=== PATIENT | female | born 1985 | race Caucasian/White ===

== ENCOUNTER → 2017-06-02 | Outpatient (CLI) | payer OTHER ==
[~2017-06-02] MED LIST: OPTIRAY 320 IV PRN
--- NOTE | 2017-06-02 17:21 | DIAGNOSTIC IMAGING REPORT ---
CT ANGIOGRAM OF THE CHEST CLINICAL HISTORY: Atypical chest pain and shortness of breath COMPARISON STUDY: No previous studies for comparison. TECHNIQUE: Following the IV administration of 93 mL of Optiray-320, CT angiogram of the thorax was performed from the thoracic inlet to the lung bases utilizing the pulmonary embolus protocol. Images are reviewed in the axial, sagittal, and coronal planes. IV contrast was administered without complication. MIP imaging was performed. A dose lowering technique was utilized adhering to the principles of ALARA. CT DOSE: 607.68 mGy.cm FINDINGS: No pathologically enlarged axillary mediastinal or hilar lymph nodes were visualized. There is no evidence of thoracic aortic dilatation. There is a left aortic arch with an aberrant right subclavian artery. There were no pulmonary artery filling defects to indicate acute pulmonary embolism. No pleural effusions are visualized. There was no evidence of focal pulmonary consolidation. IMPRESSION: 1. No evidence of acute pulmonary embolism 2. No evidence of focal pulmonary consolidation 3. Left aortic arch with an aberrant right subclavian artery Electronically signed by: Brandon Fernandez M.D. 06/02/2017 5:19 PM Dictated Date/Time: 06/02/2017 5:17 PM
== END | disposition home or self-care (01) ==
LOC: C.CTS 16:10
PROVIDERS: ATTEND Physician Assistant Medical
DX: R06.02 Shortness of breath (principal); R07.9 Chest pain, unspecified

== ENCOUNTER 2017-09-07 14:56 | Emergency (ER) | payer OTHER ==
[~2017-09-07] VITALS: Ht 167.6 cm; Wt 98.5 kg
[2017-09-07 15:05] VITALS: BP 143/96; PULSE 68; TEMP 37.1; O2SAT 97; Ht 167.6 cm; Wt 98.5 kg
--- NOTE | 2017-09-07 15:39 | EMERGENCY ROOM VISIT NOTE ---
ED Visit Note First contact with patient: 15:09 CHIEF COMPLAINT: Bilateral ear pain HISTORY OF PRESENT ILLNESS: This 31-year-old female presents the ER with chief complaint of bilateral ear pain. The patient states that she was seen at her family doctor yesterday for right ear pain. She was prescribed Augmentin twice daily for 10 days and also placed on Cortisporin Otic eardrops. The patient is here today because she is concerned that she now has it in her left ear. She started with pain in her left ear last evening. The patient denies any hearing loss. REVIEW OF SYSTEMS: 10 system review was performed and was negative unless stated otherwise history of present illness. PMH: The patient is healthy; asthma, dermatitis Ylzru-Miudokclg-Lapas, gallbladder problems SOCIAL HISTORY: Patient lives with her grandmother. The patient denies any tobacco use but admits to occasional alcohol use. PHYSICAL EXAM: Vital Signs: Were reviewed Reviewed Nurse's notes. GENERAL: 31- year-old white female appears in no acute distress. MENTAL Status: Alert and oriented 3. EARS: Right tragus and auricle tender to palpation. Canal with erythema and edema. Drainage noted. TM with good light reflex. Left tragus and auricle tender to palpation. Canal with edema and mild erythema. TM with good light reflex. MASTOIDS: No erythema or edema noted. The patient is nontender to palpation over the mastoid process. DIAGNOSIS: Acute bilateral otitis externa DISCHARGE INSTRUCTIONS & TREATMENT: Cortisporin otic drops, 4 in the ear canal 4 times a day for 7 until the pain and swelling are gone. Continue Augmentin as prescribed. Tylenol and/or ibuprofen every 6 hours as needed for pain. Make sure you keep the ears as dry as possible while using the eardrops. Follow -up with your family doctor as previously scheduled. Vital Signs Date Time Temp Pulse Resp B/P (MAP) Pulse Ox O2 Delivery O2 Flow Rate FiO2 09/07/17 15:05 37.1 68 18 143/96 97 Room Air Departure Information Referrals Cara Abbasi M.D. (PCP) Patient Instructions My [facility]
[2017-09-07] MEDS ORDERED: NEOM1SUS21 OTB (15:42)
[2017-09-07] MEDS ORDERED: AMOX875T PO (16:10)
[2017-09-07] MEDS ORDERED: SUMA100T16 PO (16:12)
== END 2017-09-07 15:55 | disposition home or self-care (01) ==
LOC: C.EDB 14:57 → C.EDD 15:55
DX: H60.393 Other infective otitis externa, bilateral (principal); J45.909 Unspecified asthma, uncomplicated

== ENCOUNTER → 2017-10-20 | Day surgery (SDC) | payer OTHER ==
[2017-10-11 12:02] VITALS: Ht 170.2 cm; Wt 96.8 kg
[~2017-10-20] VITALS: Ht 170.2 cm; Wt 96.8 kg
[~2017-10-20] MED LIST changes: +ALBU18002 INH; +ALBUAER INH; +BIOT1CAP8 PO; +FOLI1TAB8 PO; +LIDOCAINE HCL 2% 2 ML VIAL (20MG/ML) ONE; +MULTTAB58 PO; -OPTIRAY 320 IV PRN; +PANT40TA PO; +PHEN37.5 PO; +PROPOFOL IV EMULSION 10 MG/ML 20 ML VIAL IV ONE; +SODIUM CHLORIDE 0.9% 500ML 500 ML IV ONE; +SUMA100T16 PO
--- NOTE | 2017-10-20 14:28 | Endo History and Physical ---
History & Physical Date of Service: Oct 20, 2017. Chief Complaint: Reflux Referring Physician: Cara Abbasi History of Present Illness 32 yo CF who presents for EGD secondary to GERD Past Surgical History Hx Cardiac Surgery: Yes ("CATHETER ALBATION") Hx Internal Defibrillator: No Hx Pacemaker: No Hx Abdominal Surgery: No Hx of Implantable Prosthesis: No Hx Post-Op Nausea and Vomiting: No Hx Cancer Surgery: No Hx Thoracic Surgery: No Hx Orthopedic: No Hx Urinary Tract Surgery: No Family History IBD Social History Smoking Status: Current Some Day Smoker Hx Substance Use: No Hx Alcohol Use: Yes (1 DRINK ON AVERAGE EVERY NIGHT) Allergies Coded Allergies: POLLEN (Verified Allergy, Unknown, RESP. PROBLEMS, 10/11/17) Sulfa Antibiotics (Verified Allergy, Unknown, INTESTINAL PAIN, HIVES, ) Uncoded Allergies: PET DANDER (Allergy, Unknown, EYES PUFFY IF CONTACT TO FACE, RESP. DIFFICULTY, 10/11/17) STRAWBERRIES (Allergy, Unknown, ANAPHYLAXIS, 10/11/17) Current Medications Reported Home Medications Medications Dose Route/Sig Max Daily Dose Days Date Category Proair Respiclick (Albuterol Sulfate) 108 Mcg/Act Aer 2 Puff INH Q6H PRN 10/11/17 Reported Biotin 1 Mg Cap 1 Cap PO DAILY 10/11/17 Reported Folvite (Folic Acid) 1 Mg Tab 1 Mg PO DAILY 10/11/17 Reported Multivitamin (Multiple Vitamin) 1 Tab Tab 1 Tab PO DAILY 10/11/17 Reported Phentermine Hcl 37.5 Mg Tab 1 Tab PO QAM 10/11/17 Reported Imitrex (Sumatriptan Succinate) 100 Mg Tab 100 Mg PO PRN 09/07/17 Reported Vital Signs Weight (Kilograms): 96.82 Height (Feet): 5 Height (Inches): 7 Date Time Temp Pulse Resp B/P (MAP) Pulse Ox O2 Delivery O2 Flow Rate FiO2 10/20/17 12:58 36.6 63 20 104/72 (83) 98 Room Air Physical Exam General Appearance: WD/WN, no apparent distress Respiratory/Chest: Auscultation: breath sounds normal Cardiovascular: Heart Auscultation: RRR Abdomen: Bowel Sounds: normal Inspection & Palpation: soft, non-distended, no tenderness, guarding & rebound Assessment and Plan Assessment: 32 yo CF who presents for EGD secondary to GERD Plan: Proceed with EGD.
--- NOTE | 2017-10-20 14:30 | Discharge Instructions ---
Endoscopy Patient Instructions Date / Procedure(s) Performed Oct 20, 2017. EGD Allergy Information Coded Allergies: POLLEN (Verified Allergy, Unknown, RESP. PROBLEMS, 10/11/17) Sulfa Antibiotics (Verified Allergy, Unknown, INTESTINAL PAIN, HIVES, ) Uncoded Allergies: PET DANDER (Allergy, Unknown, EYES PUFFY IF CONTACT TO FACE, RESP. DIFFICULTY, 10/11/17) STRAWBERRIES (Allergy, Unknown, ANAPHYLAXIS, 10/11/17) Discharge Date / Findings Oct 20, 2017. Gastritis s/p biopsies Hiatal hernia Medication Instructions OK to resume all medications today as prescribed Reported Home Medications Medications Dose Route/Sig Max Daily Dose Days Date Category Proair Respiclick (Albuterol Sulfate) 108 Mcg/Act Aer 2 Puff INH Q6H PRN 10/11/17 Reported Biotin 1 Mg Cap 1 Cap PO DAILY 10/11/17 Reported Folvite (Folic Acid) 1 Mg Tab 1 Mg PO DAILY 10/11/17 Reported Multivitamin (Multiple Vitamin) 1 Tab Tab 1 Tab PO DAILY 10/11/17 Reported Phentermine Hcl 37.5 Mg Tab 1 Tab PO QAM 10/11/17 Reported Imitrex (Sumatriptan Succinate) 100 Mg Tab 100 Mg PO PRN 09/07/17 Reported Provider Instructions Activity Restrictions - No exercising or heavy lifting for 24 hours. - Do not drink alcohol the day of the procedure. - Do not drive a car or operate machinery until the day after the procedure. - Do not make any important decisions or sign important papers in 24 hours after the procedure. Following Day: - Return to full activity which may include returning to work/school. Diet Start your diet with liquids and light foods (jello, soup, juice, toast). Then eat your usual diet if not nauseated. Treatment For Common After Affects For mild abdominal pain, bloating, or excessive gas: - Rest - Eat lightly - Lie on right side Follow-Up Information Follow-up with Cara Abbasi as scheduled Anesthesia Information What You Should Know You have had a procedure that required some medicine to reduce anxiety and discomfort. This treatment is called moderate sedation. After receiving the treatment, you may be sleepy, but you will be able to breathe on your own. The effects of the treatment may last for several hours. Follow these instructions along with Activity/Diet recommendations noted above: * Do NOT do anything where dizziness or clumsiness would be dangerous. * Rest quietly at home today, then you can be up and about tomorrow. * Have a responsible person stay with you the rest of today. * You may have had an I.V. today. If so, you may take the dressing off later today. Recommendations Call your doctor if: * Trouble breathing * Continuous vomiting for more than 24 hours * Temperature above 101 degrees * Severe abdominal pain or bloating * Pain not relieved by pain medicine ordered * There is increased drainage or redness from any incision * A large amount of rectal bleeding greater than 2-3 tablespoons. (If you had a polyp/s removed or have hemorrhoids, a small amount of blood - from the rectum is to be expected.) * You have any unanswered questions or concerns. IN THE EVENT OF A SERIOUS EMERGENCY, GO TO THE NEAREST EMERGENCY ROOM Your discharge instructions were prepared by provider Anderson Hogue. Patient Instructions Signature Page Daxa Kelley Patient (or Guardian) Signature/Date: I have read and understand the instructions given to me by my caregivers. Caregiver/RN/Doctor Signature/Date: The above-named patient and/or guardian has received patient instructions on this date. + Original Patient Signature Page (only) stays with chart. Please make copy for patient.
--- NOTE | 2017-10-20 14:34 | GI REPORT ---
Procedure Date: 10/20/2017 1:06 PM Procedure: Upper GI endoscopy Indications: Gastro-esophageal reflux disease Medicines: Monitored Anesthesia Care Complications: No immediate complications. Estimated Blood Loss: Estimated blood loss: none. Procedure: Pre-Anesthesia Assessment: - Prior to the procedure, a History and Physical was performed, and patient medications and allergies were reviewed. The patient's tolerance of previous anesthesia was also reviewed. The risks and benefits of the procedure and the sedation options and risks were discussed with the patient. All questions were answered, and informed consent was obtained. Prior Anticoagulants: The patient has taken no previous anticoagulant or antiplatelet agents. ASA Grade Assessment: II - A patient with mild systemic disease. After reviewing the risks and benefits, the patient was deemed in satisfactory condition to undergo the procedure. After obtaining informed consent, the endoscope was passed under direct vision. Throughout the procedure, the patient's blood pressure, pulse, and oxygen saturations were monitored continuously. The scope was introduced through the mouth, and advanced to the second part of duodenum. The upper GI endoscopy was accomplished without difficulty. The patient tolerated the procedure well. Findings: The esophagus was normal. A small hiatal hernia was present. Localized mild inflammation characterized by erythema was found in the gastric antrum. Biopsies were taken with a cold forceps for histology. The examined duodenum was normal. Impression: - Normal esophagus. - Small hiatal hernia. - Gastritis. Biopsied. - Normal examined duodenum. Recommendation: - Resume previous diet. - Continue present medications. - Await pathology results. - Return to primary care physician as previously scheduled. Anderson Hogue DO 10/20/2017 2:34:31 PM This report has been signed electronically. Note Initiated On: 10/20/2017 1:06 PM I attest to the content of the Intraoperative Record and orders documented therein, exceptions below
--- NOTE | 2017-10-20 15:05 | Anesthesiology Progress Note ---
Anesthesia Post Op Note Date & Time Oct 20, 2017 at 15:05 Vital Signs Pain Intensity: 0 Vital Signs Past 12 Hours Date Time Temp Pulse Resp B/P (MAP) Pulse Ox O2 Delivery O2 Flow Rate FiO2 10/20/17 14:51 62 16 122/80 (94) 99 Room Air 10/20/17 14:26 74 16 102/68 (79) 98 Room Air 10/20/17 12:58 36.6 63 20 104/72 (83) 98 Room Air Notes Mental Status: alert / awake / arousable, participated in evaluation Pt Amnestic to Procedure: Yes Nausea / Vomiting: adequately controlled Pain: adequately controlled Airway Patency, RR, SpO2: stable & adequate BP & HR: stable & adequate Hydration State: stable & adequate Anesthetic Complications: no major complications apparent
[2017-10-20 15:06] VITALS: BP 111/62; PULSE 63; O2SAT 99
== END | disposition home or self-care (01) ==
LOC: C.GI 12:34
PROVIDERS: ATTEND Internal Medicine
DX: K21.9 Gastro-esophageal reflux disease without esophagitis (principal); K44.9 Diaphragmatic hernia without obstruction or gangrene; K29.70 Gastritis, unspecified, without bleeding; Z88.2 Allergy status to sulfonamides; J45.909 Unspecified asthma, uncomplicated; Z98.890 Other specified postprocedural states; F17.200 Nicotine dependence, unspecified, uncomplicated

== ENCOUNTER 2022-02-15 04:29 | Inpatient (IN) ==
[2022-02-15] MEDS ORDERED: OXYTOCIN 30 UNITS/500 ML BAG IV PRN ×3 (04:58→11:03)
[2022-02-15] MEDS ORDERED: BUTORPHANOL TARTRATE 1 MG/ML VIAL IV ONE (05:15)
[2022-02-15 05:31] LABS: Hematocrit (blood only) 35.5 % (37-47); Hemoglobin 11.9 g/dL (12.0-16.0); Mean Corpuscular Volume 86.6 fL (80-100); Mean Platelet Volume 9.9 fL (7.4-10.4); Platelet Count 295 K/uL (130-400); RDW Coefficient of Variation 13.4 % (11.5-14.5); RDW Standard Deviation 42.7 fL (36.4-46.3); White Blood Count 11.59 K/uL (4.8-10.8)
[2022-02-15] MEDS: LACTATED RINGER'S 1,000 ML IV PRN ×2 (05:32→06:40)
[2022-02-15] MEDS ORDERED: fentaNYL citrate 100 MCG/2 ML VIAL ONE (05:37)
[2022-02-15] MEDS ORDERED: SODIUM CHLORIDE 0.9% INJ 10 ML VIAL ONE (05:37)
[2022-02-15] MEDS ORDERED: ePHEDrine sulfate 50 MG/ML AMP ONE (05:37)
[2022-02-15] MEDS ORDERED: BUPIVACAINE 0.25% 30 ML VIAL ONE (05:37)
[2022-02-15] MEDS ORDERED: fentaNYL 2MCG/ML ROPIVACAINE 1.25MG/ML 100 ML BAG EPI ONE (05:38)
[2022-02-15 05:47] LABS: Mean Corpuscular Hgb Conc 33.5 g/dL (32-36)
[2022-02-15] MEDS ORDERED: diphenhydrAMINE 50 MG/ML VIAL IV PRN (06:09)
[2022-02-15] MEDS ORDERED: NALOXONE HCL 0.4 MG/1 ML VIAL/CARP IV PRN (06:09)
[2022-02-15] MEDS ORDERED: NALOXONE HCL 1 MG in SODIUM CHLORIDE 0.9% 1000ML 1,000 ML IV PRN (06:09)
[2022-02-15] MEDS ORDERED: NALBUPHINE HCL INJ 10 MG/ML AMP IV PRN (06:09)
[2022-02-15] MEDS ORDERED: ONDANSETRON INJ 2 MG/ML 2 ML VIAL IV PRN (06:09)
[2022-02-15] MEDS ORDERED: fentaNYL 2MCG/ML ROPIVACAINE 1.25MG/ML 100 ML BAG EPI PRN (06:09)
[2022-02-15] MEDS ORDERED: ePHEDrine sulfate 50 MG/ML AMP IV PRN (06:09)
--- NOTE | 2022-02-15 06:11 | Anesthesiology Consultation ---
Date of Service February 15, 2022 Assessment & Plan Chart Review Chart Review: Patient NOT seen in Pre Admission Testing and Acceptable Risk for Labor Epidural Consults Requested none ASA ASA2 Proposed Anesthesia Anesthesia Type: Labor Epidural and CSE Risk / Benefits Reviewed With: PT / POA / Parent / Guardian, Accepts Plan and Informed Consent Obtained History Height/Weight Height: 5 ft 6 in Weight: 110.223 kg Allergies Allergy/AdvReac Type Severity Reaction Status Date / Time bee venom protein (honey bee) Allergy Severe SEVERE Verified 02/15/22 04:53 SWELLING strawberry Allergy Severe Anaphylaxis Verified 02/15/22 04:53 pollen extracts Allergy Intermediate CONGESTION Verified 02/15/22 04:53 Sulfa (Sulfonamide Allergy Intermediate INTESTINAL Verified 02/15/22 04:53 Antibiotics) PAIN, HIVES PET DANDER Allergy Intermediate EYES PUFFY Uncoded 10/10/21 10:21 IF CONTACT TO FACE, RESP. DIFFICULTY Medications Home Medications Medication Instructions Recorded Confirmed Last Taken zinc 50 mg tablet 50 mg PO DAILY 05/21/21 10/10/21 Unknown lykoeqpn-vafxce-ywzf-lemon PO 07/09/21 10/10/21 Unknown cholecalciferol (vitamin D3) PO 09/09/21 10/10/21 Unknown pyridoxine (vitamin B6) PO 09/09/21 10/10/21 Unknown COVID-19 antigen test (BinaxNOW #5 ea 10/21/21 Unknown COVD Ag Card Home Tst) Active Medications Generic Name Dose Route Start Last Admin Trade Name Freq PRN Reason Stop Dose Admin Lactated Ringer's 1,000 mls @ 125 mls/hr 02/15/22 04:58 02/15/22 05:32 Lr IV 02/17/22 04:57 999 mls/hr .Q8H PRN Administration L&D Protocol Protocol NPO Date Last Intake of Fluids: 02/15/22 Time Last Intake of Fluids: 05:30 Date Last Intake of Solids: 02/14/22 Time Last Intake of Solids: 19:00 Past Medical History Medical History Acute Crohn's disease Asthma USES INHALER SEASONALLY 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 Claustrophobia GERD (gastroesophageal reflux disease) Hx of gastritis Migraine headache Seasonal allergies Varicella vaccination Jbciu-Kgzejaogi-Iptfa syndrome HX OF Exercise / Class Metabolic Activity II 4-5 Yardwork/Stairs/Walk up hill Past Family History Family History Mother Anxiety Depression Father Skin cancer Anxiety Depression Grandmother Skin cancer Breast cancer Hypertension Crohn's disease great grandmother Grandfather Alcohol abuse Heart disease Myocardial infarction Other No family history of adverse response to anesthesia Denies family history of Ovarian cancer Prostate cancer Colorectal cancer Past Surgical History Surgical History H/O cardiac radiofrequency ablation AT AGE 21 (IN [place] H/O wisdom tooth extraction History of anesthesia reaction "SENSITIVE TO ANESTHESIA". WOKE UP IN MIDDLE OF CARDIAC ABLATION>PANIC ATTACK History of dilatation and curettage History of esophagogastroduodenoscopy (EGD) Ingrown toenail REPAIRED Past Anesthesia History No Hx of Anesthesia Complications and No Family Hx of Anesthesia Complications History of PONV No Hx of PONV and No Hx of Motion Sickness Social History Smoking Status: Former smoker tobacco type: cigarettes Hx Alcohol Use: No alcohol intake frequency: a few times a month Hx Substance Use: No substance use type: does not use Review of Systems no chest pain or sob Physical Exam Vital Signs Last Vital Signs Temp 36.6 C 02/15/22 05:04 Pulse 65 02/15/22 06:08 Resp 20 02/15/22 05:04 BP 160/87 H 02/15/22 05:04 Pulse Ox 92 02/15/22 06:08 Constitutional + obese ENMT Mouth: no TMJ abnormality Thyromental Distance: > or= 3.5 Finger Breadths Mallampati Class: II Neck normal visual inspection Respiratory normal respiratory effort Auscultation: lungs clear to auscultation bilaterally Cardiovascular Rate/Rhythm: regular rate and regular rhythm Musculoskeletal Spine: normal cervical ROM Neurologic moves all extremities Psychiatric Orientation: alert and oriented x 3 Testing Laboratory Results 02/15/22 05:12
[2022-02-15] MEDS ORDERED: METHYLERGONOVINE MALEATE 0.2 MG/ML AMP ONE (10:59)
[2022-02-15] MEDS ORDERED: HYDROCORTISONE ACETATE 25 MG SUPP PR PRN (11:03)
[2022-02-15] MEDS ORDERED: IBUPROFEN 600 MG TAB PO PRN (11:03)
[2022-02-15] MEDS ORDERED: BENZOCAINE 20% AER SPR 82.5 GM CAN EXT PRN (11:03)
[2022-02-15] MEDS ORDERED: oxyCODONE/ACETAMINOPHEN 5mg/325mg TAB PO PRN (11:03)
[2022-02-15] MEDS ORDERED: METHYLERGONOVINE MALEATE 0.2 MG/ML AMP IM ONE (11:03)
[2022-02-15] MEDS ORDERED: bisacodyL 10 MG SUPP PR PRN (11:03)
[2022-02-15] MEDS ORDERED: DIPHTHERIA/TETANUS/PERTUSSIS 0.5 ML SYR/VIAL IM ONE (11:03)
[2022-02-15] MEDS ORDERED: ACETAMINOPHEN 325 MG TAB PO PRN (11:03)
[2022-02-15] MEDS ORDERED: ACETAMINOPHEN W/CODEINE #3 1 TAB PO PRN (11:03)
[2022-02-15] MEDS ORDERED: METHYLERGONOVINE MALEATE 0.2 MG/ML AMP IM STA (11:29)
--- NOTE | 2022-02-15 12:08 | Anesthesia Procedure Note ---
Date of Service February 15, 2022 Anesthesia Post Epidural Note Vital Signs Vital Signs: Temp Pulse Resp BP Pulse Ox 37.2 C 77 20 130/64 94 02/15/22 10:58 02/15/22 11:58 02/15/22 11:58 02/15/22 11:58 02/15/22 10:54 Notes Mental Status: alert / awake / arousable Nausea / Vomiting: adequately controlled Pain: adequately controlled Airway Patency, RR, SpO2: stable & adequate BP & HR: stable & adequate Hydration State: stable & adequate Neuraxial Anesthesia: was administered and sensory block is resolving Anesthetic Complications: no major complications apparent Epidural: Removed without complications and With tip intact
--- NOTE | 2022-02-15 16:13 | Delivery Summary ---
DATE OF DELIVERY: 02/15/2022. DELIVERY NOTE: The patient is a 4, para 1, blood type A positive, group B strep negative, du e date 02/25/2022, had been admitted previously for decreased movement and elevated blood press ures at home. She called in the early hours of the evening of admission and said her blood pressure was up, she was going to wait until the morning. She then called about 3:00 a.m. her membranes had r uptured spontaneously. She was then evaluated at the hospital, she had gross rupture of membranes. S he had severe pain. She was given epidural anesthesia with good pain relief. First time I checked h er, she was 8+, cervix was paper thin. I gave her some low-dose Pitocin to create regular contractio ns. She quickly went to full dilatation, pushed out a live female infant via direct occiput anterior position over an intact perineum. This was a very controlled delivery. Infant was suctioned throug h the mouth and the nose. Shoulders were delivered without difficulty. Cord was allowed to pulse fo r 1 minute, then cord was clamped and cut. Cord blood was taken. With IV Pitocin running, the place nta was removed intact. Inspection of the perineum revealed a superficial laceration at 5 o'clock th at went about an inch up the vaginal mucosa. This was repaired with a running 2-0 Vicryl out and to beyond the hymenal ring. Following this, hemostasis was good. Sponges were removed from the vagina. Vaginal examination revealed no hematoma formation. Uterus contracted nicely. We did give an myesha tional dose of Methergine. Estimated blood loss was 200 mL. Apgars were deferred to the nurses. Job ID: [id number]
[2022-02-15] MEDS ORDERED: LIDOCAINE 2% JELLY 5 ML TUBE ONE (18:53)
[2022-02-15] MEDS: DOCUSATE SODIUM 100 MG CAP PO SCH (21:00)
[2022-02-16 06:06] LABS: Hematocrit (blood only) 32.2 % (37-47); Hemoglobin 10.8 g/dL (12.0-16.0); Mean Corpuscular Hemoglobin 29.5 pg (25-34); Mean Corpuscular Hgb Conc 33.5 g/dL (32-36); Mean Platelet Volume 9.8 fL (7.4-10.4); Platelet Count 255 K/uL (130-400); RDW Coefficient of Variation 13.6 % (11.5-14.5); RDW Standard Deviation 43.9 fL (36.4-46.3); Red Blood Count 3.66 M/uL (4.2-5.4); White Blood Count 12.06 K/uL (4.8-10.8)
--- NOTE | 2022-02-16 08:08 | Obstetrical Progress Note ---
Date of Service February 16, 2022 Assessment & Plan Admission and Anticipated Discharge Date Admission Date: February 15, 2022 Subjective abdomen soft and non tender no calf tenderness ambulating well catheter in place for urinary retension vaginal bleeding scant hgb 10.8 Results & Data ([facility]) Vital Signs (Past 12 Hours) Vital Signs Temp Pulse Resp BP Pulse Ox 02/16/22 03:25 36.7 C 85 20 109/56 L 95 02/15/22 23:35 36.8 C 73 20 120/79 97
[2022-02-16] MEDS: PRENATAL VITAMIN 1 TAB PO SCH (08:43)
[2022-02-16] MEDS: DOCUSATE SODIUM 100 MG CAP PO SCH ×2 (08:43→19:39)
[2022-02-16] MEDS ORDERED: COSYNTROPIN IV ONE (09:30)
[2022-02-16] MEDS ORDERED: SODIUM CHLORIDE 0.9% IV ONE (09:30)
--- NOTE | 2022-02-16 15:30 | Communication Note ---
Date of Service: February 16, 2022 Called by nursing today as patient c/o headache different from her typical migraines. She described the headache as starting to become bothersome today and was worsened when sitting upright and ambulating around the room. When she was supine, headache resolved. She described the headache as frontal and throbbing in nature. Denied vision changes or nuchal rigidity. No N/V associated with headache. Record reviewed, noted that she had CSE done for labor epidural yesterday. Her headache does fit the profile of a spinal headache. Had long discussion earlier today about why she has this headache and explored the various treatment options. Right now, she does not want to be heavily medicated and also wants to avoid invasive procedure (blood patch) if possible. She is amenable to do caffeinated drinks and I also ordered cosyntropin IV to be administered. Followed up later in the day and patient was able to bathe her baby but then did experience headache and asked for an icepack. She knows I am willing to do blood patch today if she wants. I also told her if she wants to be patched tomorrow, this should be done before she goes home otherwise she has to go to the ER and potentially have a longer visit. Patient understands and will await her decision about how to proceed.
[2022-02-16] MEDS ORDERED: bisacodyL 5 MG TABEC PO SCH (20:00)
[2022-02-17 07:54] LABS: Hematocrit (blood only) 33.9 % (37-47); Hemoglobin 11.1 g/dL (12.0-16.0)
--- NOTE | 2022-02-17 08:11 | Obstetrical Progress Note ---
Date of Service February 17, 2022 Assessment & Plan Admission and Anticipated Discharge Date Admission Date: February 15, 2022 Subjective abdomen soft and non tender ambulating well no calf tenderness vaginal bleeding scant hgb 11.1 Results & Data ([facility]) Vital Signs (Past 12 Hours) Vital Signs Temp Pulse Resp BP Pulse Ox 02/16/22 23:35 36.8 C 60 16 108/68 97
[2022-02-17] MEDS: DOCUSATE SODIUM 100 MG CAP PO SCH (08:57)
[2022-02-17] MEDS: PRENATAL VITAMIN 1 TAB PO SCH (08:57)
== END 2022-02-17 14:56 | disposition home or self-care (01) | DRG 807 ==
LOC: OPB 04:29 → 4S1 04:33 → 4E2 13:30
DX: O42.02 Full-term premature rupture of membranes, onset of labor within 24 hours of rupture; O99.893 Other specified diseases and conditions complicating puerperium; Z37.0 Single live birth; Z87.891 Personal history of nicotine dependence; R33.9 Retention of urine, unspecified; O89.4 Spinal and epidural anesthesia-induced headache during the puerperium; Z20.822 Contact with and (suspected) exposure to COVID-19; Z3A.38 38 weeks gestation of pregnancy; O70.0 First degree perineal laceration during delivery

== ENCOUNTER 2022-03-15 09:21 | Observation (INO) ==
[2022-03-15] MEDS ORDERED: ACETAMINOPHEN 1,000 MG/100 ML VIAL IV STA (09:32)
[2022-03-15] MEDS ORDERED: ONDANSETRON INJ 2 MG/ML 2 ML VIAL IV STA (09:32)
[2022-03-15] MEDS ORDERED: FAMOTIDINE 20MG IV PUSH 20 MG/5 ML SYR IV STA (09:32)
--- NOTE | 2022-03-15 10:02 | XRay Report ---
XR chest 1V portable CLINICAL HISTORY: Chest Pain. COMPARISON STUDY: No previous studies for comparison. TECHNIQUE: 1 view of the chest FINDINGS: Single frontal view of the chest demonstrates the cardiomediastinal silhouette to be within normal li mits. The lungs are clear of alveolar opacities. There is no evidence for pleural effusion. There is no evidence for vascular congestion. There is no acute osseous pathology. IMPRESSION: 1. No acute cardiopulmonary disease. ACT 112: Negative or not required by law. Electronically signed by: Ramakrishna Palmer M.D. 03/15/2022 10:00 AM
[2022-03-15 10:12] LABS: Basophils # (auto) 0.03 K/uL (0-0.2); Basophils % (auto) 0.3 %; Eosinophils % (auto) 2.2 %; Hematocrit (blood only) 40.6 % (37-47); Hemoglobin 13.7 g/dL (12.0-16.0); Immature Granulocytes # (auto) 0.03 K/uL (0.00-0.02); Immature Granulocytes % (auto) 0.3 %; Lymphocytes # (auto) 2.12 K/uL (1.2-3.4); Lymphocytes % (auto) 23.2 %; Mean Corpuscular Hemoglobin 29.7 pg (25-34); Mean Corpuscular Hgb Conc 33.7 g/dL (32-36); Mean Corpuscular Volume 88.1 fL (80-100); Mean Platelet Volume 9.3 fL (7.4-10.4); Monocytes % (auto) 6.6 %; Neutrophils # (auto) 6.16 K/uL (1.4-6.5); Neutrophils % (auto) 67.4 %; Platelet Count 324 K/uL (130-400); RDW Coefficient of Variation 12.9 % (11.5-14.5); RDW Standard Deviation 41.1 fL (36.4-46.3); Red Blood Count 4.61 M/uL (4.2-5.4); White Blood Count 9.14 K/uL (4.8-10.8)
[2022-03-15 10:32] LABS: Troponin I High Sensitivity 3.6 pg/ml (0-14)
[2022-03-15 10:35] LABS: Albumin Globulin Ratio 1.4 (0.9-2); Albumin Level 4.2 gm/dl (3.4-5.0); BUN Creatinine Ratio 25.4 (10-20); Bilirubin,Total 0.4 mg/dl (0.2-1.0); Calcium 9.3 mg/dl (8.5-10.1); Creatinine Clr Calc Pharmacy 133.4 ml/min; Est GFR (African American) 127.9 ml/min; Est GFR (Non-African American) 110.4 ml/min; Globulin 3.1 gm/dl (2.5-4.0); Magnesium 1.9 mg/dl (1.7-2.4); Phosphorus 3.9 mg/dl (2.5-4.9); Potassium 3.8 mmol/L (3.5-5.1); Total Protein 7.3 gm/dl (6.0-8.3)
[2022-03-15] MEDS ORDERED: METOCLOPRAMIDE HCL INJ 5 MG/ML 2 ML VIAL IV STA (10:45)
[2022-03-15] MEDS ORDERED: diphenhydrAMINE 50 MG/ML VIAL IV STA (10:45)
[2022-03-15] MEDS ORDERED: SODIUM CHLORIDE 0.9% 1000ML 2,000 ML IV ONE (10:45)
[2022-03-15] MEDS ORDERED: SUCRALFATE 1 GM/10 ML UDC PO STA (10:45)
--- NOTE | 2022-03-15 12:28 | Ultrasound Report ---
US gallbladder CLINICAL HISTORY: upper abdominal pain. COMPARISON: None. TECHNIQUE: Multiple grayscale and color images of the right upper quadrant of the abdomen. FINDINGS: Pancreas: The imaged portion of the pancreas is within normal limits with no focal mass or peripancre atic fluid collection identified. Liver: The liver is homogeneous in echogenicity There is no evidence for a focal mass. There is no in trahepatic biliary duct dilatation. Gallbladder: The gallbladder is well distended with a 1.1 cm nonmobile calculus present within the ne ck of the gallbladder. There is mild gallbladder wall thickening measuring 4 mm. No pericholecystic e td is seen. However, there was reportedly a positive sonographic Brunson sign. Common Bile Duct: (CBD): The common bile duct is mildly dilated measuring 10 mm. . Inferior Vena Cava (IVC): The imaged IVC is patent. Right kidney: There is no evidence for hydronephrosis, calculus or gross renal mass. The kidney is no rmal in size. IMPRESSION: 1. Evidence for nonmobile calculus within the neck of the gallbladder with gallbladder wall thickenin g and positive sonographic Brunson sign. Findings are suspicious for early acute cholecystitis. 2. This also mild dilatation of the common bile duct. ACT 112: Negative or not required by law. Electronically signed by: Ramakrishna Palmer M.D. 03/15/2022 12:26 PM
--- NOTE | 2022-03-15 12:29 | Electrocardiogram Report ---
Test Reason : Blood Pressure : / mmHG Vent. Rate : 062 BPM Atrial Rate : 062 BPM P-R Int : 150 ms QRS Dur : 096 ms QT Int : 420 ms P-R-T Axes : 013 055 033 degrees QTc Int : 426 ms Poor data quality, interpretation may be adversely affected Normal sinus rhythm with sinus arrhythmia Normal ECG When compared with ECG of 15-MAR-2022 09:31, (unconfirmed) No significant change was found Confirmed by Tacho Kinsey ([id number]) on 03/15/2022 12:29:40 PM Referred By: REFERRED SELF Confirmed By:Josemanuel Kinsey
--- NOTE | 2022-03-15 13:19 | Emergency Department Note ---
Impression & Plan Cholelithiases, Epigastric abdominal pain, Elevated AST (SGOT), Elevated ALT measurement, Intractable nausea and vomiting ED Provider Note NAME: CYNDIE RIVERA AGE: 36 SEX: F ARRIVES VIA: Walk-In INFORMANT: Patient ED PROVIDER(S): Humberto Ortiz MD CHIEF COMPLAINT: Abdominal pain PLAN: Disposition: Admit MEDICAL DECISION MAKING: The patient is a pleasant 36-year-old woman with a past medical history of acid reflux who presents to the emergency department at 1 month after having vaginal delivery for evaluation of acute onset upper abdominal pain with associated nausea and vomiting that began abruptly this morning. The patient reports that her blood pressure was elevated at the end of but did not receive treatment for blood pressure and did not have protein in her urine. The patient denies any fevers, chills, cough, congestion. She denies diarrhea. She denies chest pain or shortness of breath. On arrival the patient is uncomfortable no acute distress, afebrile with blood pressure initially elevated 170s/90s in the setting of the patient's pain/discomfort. Vital signs otherwise stable. Moderate epigastric tenderness. Equivocal Brunson sign. EKG without overt acute ischemia. CXR negative for acute cardiopulmonary process. WBC, H/H and platelets within normal limits. Chemistry without metabolic acidosis. Electrolytes unremarkable. AST and ALT are mildly elevated at 44 and 98, respectively. Total bilirubin within normal limits. Alk phos within normal limits. High-sensitivity troponin 3.6, within normal limits. Lipase is not elevated. Formal gallbladder ultrasound was performed and demonstrates nonmobile bile gallstones in the gallbladder neck as well as a dilated CBD. Upon reevalu ation patient's symptoms were significantly improved following IV fluid hydration, APAP, Pepcid, Zofran, diphenhydramine, Reglan. Her abdomen was no longer tender. However, given the patient's ultrasound findings in the setting of the severity of her pain on arrival we did agree to proceed with plan for admission for further evaluation and likely MRCP/ERCP with possible surgery/GI consultation. Case was discussed with Traci Delarosa [facility] PAC with Dr. Rachel, [facility] hospitalist, who will evaluate the patient for admission. Case was discussed with Dr. Carmona, general surgery on-call. Patient will need suspected CBD obstruction addressed before consideration of gallbladder. Admitting team updated. Triage Nursing notes reviewed and agree them. Prior medical records reviewed Vital Signs: reviewed and remarkable for hypertension. Differential diagnosis: Appendicitis, ovarian cyst, ovarian torsion, ectopic , TOA, PID, infections, diverticulitis, UTI, obstruction, mesenteric ischemia, aortic pathology, inflammatory bowel disease, renal colic, PUD, pancreatitis, biliary pathology, hernia, volvulus, constipation, as well as other pathologies. ER treatment provided: See below. Diagnostics interpreted by me: ECG: Normal sinus rhythm, 62 bpm, no ectopy, no overt ST elevation or depression. Cardiac Monitoring: An order for continuous cardiac monitoring was placed and demonstrated normal sinus rhythm, 62 bpm, no ectopy. Laboratory studies: See below Imaging studies: See below Consultation(s): Traci Delarosa [facility] [place] PAC with Dr. Rachel, [facility] hospitalist Dr. Carmona, general surgery on-call HPI: The patient is a pleasant 36-year-old woman with a past medical history of acid reflux who presents emergency department at 1 month after having vaginal delivery for evaluation of acute onset upper abdominal pain with associated nausea and vomiting that began abruptly this morning. The patient reports that her blood pressure was elevated at the end of but did not receive treatment for blood pressure and did not have protein in her urine. ROS: See above HPI for pertinent positives & negatives. A total of 10 systems reviewed and were otherwise negative. VITALS:See Below PHYSICAL EXAMINATION: GENERAL: Awake, alert, well-appearing, in no distress HENT: Normocephalic, atraumatic. Oropharynx unremarkable. EYES: Normal conjunctiva. Sclera non-icteric. NECK: Supple. No nuchal rigidity. FROM. No JVD. RESPIRATORY: Clear to auscultation. CARDIAC: Regular rate, normal rhythm. Extremities warm and well perfused. Pulses equal. ABDOMEN: Soft, non-distended. Moderate epigastric tenderness to palpation. Equivocal brunson sign. No masses. RECTAL: Deferred. MUSCULOSKELETAL: Chest examination reveals no tenderness. The back is symmetrical on inspection without obvious abnormality. There is no CVA tende rness to palpation. No joint edema. LOWER EXTREMITIES: Calves are equal size bilaterally and non-tender. No edema. No discoloration. NEURO: Normal sensorium. No sensory or motor deficits noted. SKIN: No rash or jaundice noted. Humberto Ortiz MD Past Med/Surg History Medical History Acute Crohn's disease Asthma USES INHALER SEASONALLY 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 Claustrophobia GERD (gastroesophageal reflux disease) Hx of gastritis Migraine headache Seasonal allergies Varicella vaccination Hvhrr-Nuavelzdw-Ssfur syndrome HX OF Surgical History H/O cardiac radiofrequency ablation AT AGE 21 (IN [place] H/O wisdom tooth extraction History of anesthesia reaction "SENSITIVE TO ANESTHESIA". WOKE UP IN MIDDLE OF CARDIAC ABLATION>PANIC ATTACK History of dilatation and curettage History of esophagogastroduodenoscopy (EGD) Ingrown toenail REPAIRED Family History Mother Anxiety Depression Father Skin cancer Anxiety Depression Grandmother Skin cancer Breast cancer Hypertension Crohn's disease great grandmother Grandfather Alcohol abuse Heart disease Myocardial infarction Other No family history of adverse response to anesthesia Denies family history of Ovarian cancer Prostate cancer Colorectal cancer Social History Smoking Status: Former smoker Tobacco Type: Cigarettes Second Hand Exposure: No; Hx Alcohol Use: No Hx Substance Use: No Preferred Language: Monegasque Communication Ability: Effective Visual Impairment: No Limitations Hearing Ability: Normal Director Underwriter Sales Required: No Beliefs That Will Affect Care: None marital status: marital status details: Harry Chiu (33) [phone] Current Living Situation: Spouse Current Living Situation Comment: house with current occupational status: employed and unemployed 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 [employer] Other Information That Helps Us Care for You: No Feels Safe at Home: Yes Childhood Exposure to Second-Hand Smoke: No Dental Care, Regularly: Yes Physical Activity Frequency: 3-4 Times per Week Assistive Devices: Glasses Allergies Allergies Allergy/AdvReac Type Severity Reaction Status Date / Time bee venom protein (honey bee) Allergy Severe SEVERE Verified 02/15/22 04:53 SWELLING strawberry Allergy Severe Anaphylaxis Verified 02/15/22 04:53 pollen extracts Allergy Intermediate CONGESTION Verified 02/15/22 04:53 Sulfa (Sulfonamide Allergy Intermediate INTESTINAL Verified 02/15/22 04:53 Antibiotics) PAIN, HIVES PET DANDER Allergy Intermediate EYES PUFFY Uncoded 10/10/21 10:21 IF CONTACT TO FACE, RESP. DIFFICULTY Home Meds Home Medications Medication Instructions Recorded Confirmed zinc 50 mg tablet 50 mg PO DAILY 05/21/21 02/15/22 cholecalciferol (vitamin D3) 1 tab PO DAILY 09/09/21 02/15/22 multivitamin 1 tab PO DAILY 02/15/22 02/15/22 Previous Rx's Medication Instructions Recorded COVID-19 antigen test ([facility] #5 ea 10/21/21 COVD Ag Card Home Tst) Results & Data (ED) Vital Signs Vital Signs - 24 hr 03/15/22 09:23 03/15/22 09:32 03/15/22 10:00 Temperature 36.5 C Temperature Source Temporal Artery Scan Pulse Rate 71 Pulse Rate [Apical] 55 L Respiratory Rate 18 13 Respiratory Effort / Characteristics Non-Labored Spontaneous Respiratory Depth Normal Blood Pressure 172/92 H Blood Pressure [Left Arm] 147/89 H Blood Pressure Mean 118 Blood Pressure Mean [Left Arm] 108 Pulse Oximetry 96 98 99 Oxygen Delivery Method Room Air Room Air Room Air Sepsis Recent Fever Within 48 Hours No Sepsis New/Unexplained Change in Mental Status No Sepsis Action Taken by Nursing No Action Required 03/15/22 12:00 Temperature Temperature Source Pulse Rate Pulse Rate [Apical] 57 L Respiratory Rate 13 Respiratory Effort / Characteristics Non-Labored Spontaneous Respiratory Depth Normal Blood Pressure Blood Pressure [Left Arm] 157/101 H Blood Pressure Mean Blood Pressure Mean [Left Arm] 119 Pulse Oximetry 97 Oxygen Delivery Method Room Air Sepsis Recent Fever Within 48 Hours Sepsis New/Unexplained Change in Mental Status Sepsis Action Taken by Nursing Laboratory Data Result diagrams: 03/15/22 09:55 03/15/22 09:55 Lab Results 03/15/22 03/15/22 03/15/22 Range/Units 09:55 09:55 13:24 WBC 9.14 (4.8-10.8) K/uL RBC 4.61 (4.2-5.4) M/uL Hgb 13.7 (12.0-16.0) g/dL Hct 40.6 (37-47) % MCV 88.1 (80-100) fL MCH 29.7 (25-34) pg MCHC 33.7 (32-36) g/dL RDW Std Deviation 41.1 (36.4-46.3) fL RDW Coeff of Domonique 12.9 (11.5-14.5) % Plt Count 324 (130-400) K/uL MPV 9.3 (7.4-10.4) fL Immature Gran % (Auto) 0.3 % Neut % (Auto) 67.4 % Lymph % (Auto) 23.2 % Otero % (Auto) 6.6 % Eos % (Auto) 2.2 % Baso % (Auto) 0.3 % Neut # (Auto) 6.16 (1.4-6.5) K/uL Lymph # (Auto) 2.12 (1.2-3.4) K/uL Otero # (Auto) 0.60 H (0.11-0.59) K/uL Eos # (Auto) 0.20 (0-0.5) K/uL Baso # (Auto) 0.03 (0-0.2) K/uL Immature Gran # (Auto) 0.03 H (0.00-0.02) K/uL Sodium 138 (136-145) mmol/L Potassium 3.8 (3.5-5.1) mmol/L Chloride 104 (98-107) mmol/L Carbon Dioxide 24 (21-32) mmol/L Anion Gap 10 (3-11) BUN 18 (6-23) mg/dl Creatinine 0.71 (0.6-1.2) mg/dl Est Cr Clr Drug Dosing 133.4 ml/min Est GFR ( Amer) 127.9 ml/min Est GFR (Non-Af Amer) 110.4 ml/min BUN/Creatinine Ratio 25.4 H (10-20) Glucose 107 H (70-99(Fasting)) mg/dl Calcium 9.3 (8.5-10.1) mg/dl Phosphorus 3.9 (2.5-4.9) mg/dl Magnesium 1.9 (1.7-2.4) mg/dl Total Bilirubin 0.4 (0.2-1.0) mg/dl AST 44 H (13-39) U/L ALT 98 H (7-52) U/L Alkaline Phosphatase 69 (34-104) U/L Troponin I High Sens 3.6 (0-14) pg/ml Total Protein 7.3 (6.0-8.3) gm/dl Albumin 4.2 (3.4-5.0) gm/dl Globulin 3.1 (2.5-4.0) gm/dl Albumin/Globulin Ratio 1.4 (0.9-2) Lipase 58 (11-82) U/L SARS-CoV-2, RNA, NAAT NEGATIVE (NEGATIVE) Administered Medications Lactated Ringer's (Lr) 1,000 mls @ 125 mls/hr IV .Q8H SHADIA Stop: 04/14/22 15:21 Last Admin: 03/15/22 15:26 Dose: 125 mls/hr Documented by: [id number] Discontinued Medications Diphenhydramine HCl (Diphenhydramine 50 Mg/Ml Vial) 25 mg IV NOW STA Stop: 03/15/22 10:46 Last Admin: 03/15/22 10:58 Dose: 25 mg Documented by: [id number] Famotidine (Pepcid 20mg Iv Push) 20 mg in 5 mls @ 2.5 mls/min IV NOW STA Stop: 03/15/22 09:33 Last Admin: 03/15/22 10:03 Dose: 2.5 mls/min Documented by: [id number] Acetaminophen (Ofirmev) 1,000 mg in 100 mls @ 400 mls/hr IV NOW STA Stop: 03/15/22 09:46 Last Infusion: 03/15/22 10:20 Dose: 0 mls/hr Documented by: [id number] Admin: 03/15/22 10:05 Dose: 400 mls/hr Documented by: [id number] Sodium Chloride (Nss 1000ml) 2,000 mls @ 999 mls/hr IV .Q2H1M ONE Stop: 03/15/22 12:45 Last Infusion: 03/15/22 13:04 Dose: 0 mls/hr Documented by: [id number] Admin: 03/15/22 11:03 Dose: 999 mls/hr Documented by: [id number] Metoclopramide HCl (Metoclopramide Hcl Inj 5 Mg/Ml 2 Ml Vial) 10 mg IV NOW STA Stop: 03/15/22 10:46 Last Admin: 03/15/22 10:58 Dose: 10 mg Documented by: [id number] Ondansetron HCl (Ondansetron Inj 2 Mg/Ml 2 Ml Vial) 4 mg IV NOW STA Stop: 03/15/22 09:33 Last Admin: 03/15/22 10:06 Dose: 4 mg Documented by: [id number] Sucralfate (Sucralfate 1 Gm/10 Ml Udc) 1 gm PO NOW STA Stop: 03/15/22 10:46 Last Admin: 03/15/22 10:57 Dose: 1 gm Documented by: [id number] Imaging Data Radiologist's Impression: Gallbladder Ultrasound 03/15/22 10:55 US gallbladder CLINICAL HISTORY: upper abdominal pain. COMPARISON: None. TECHNIQUE: Multiple grayscale and color images of the right upper quadrant of the abdomen. FINDINGS: Pancreas: The imaged portion of the pancreas is within normal limits with no focal mass or peripancreatic fluid collection identified. Liver: The liver is homogeneous in echogenicity There is no evidence for a focal mass. There is no intrahepatic biliary duct dilatation. Gallbladder: The gallbladder is well distended with a 1.1 cm nonmobile calculus present within the neck of the gallbladder. There is mild gallbladder wall thickening measuring 4 mm. No pericholecystic edema is seen. However, there was reportedly a positive sonographic Brunson sign. Common Bile Duct: (CBD): The common bile duct is mildly dilated measuring 10 mm. . Inferior Vena Cava (IVC): The imaged IVC is patent. Right kidney: There is no evidence for hydronephrosis, calculus or gross renal mass. The kidney is normal in size. IMPRESSION: 1. Evidence for nonmobile calculus within the neck of the gallbladder with gallbladder wall thickening and positive sonographic Brunson sign. Findings are suspicious for early acute cholecystitis. 2. This also mild dilatation of the common bile duct. ACT 112: Negative or not required by law. Electronically signed by: Ramakrishna Palmer M.D. 03/15/2022 12:26 PM Chest X-Ray 03/15/22 09:32 XR chest 1V portable CLINICAL HISTORY: Chest Pain. COMPARISON STUDY: No previous studies for comparison. TECHNIQUE: 1 view of the chest FINDINGS: Single frontal view of the chest demonstrates the cardiomediastinal silhouette to be within normal limits. The lungs are clear of alveolar opacities. There is no evidence for pleural effusion. There is no evidence for vascular congestion. There is no acute osseous pathology. IMPRESSION: 1. No acute cardiopulmonary disease. ACT 112: Negative or not required by law. Electronically signed by: Ramakrishna Palmer M.D. 03/15/2022 10:00 AM Gallbladder Ultrasound 03/15/22 10:55 US gallbladder CLINICAL HISTORY: upper abdominal pain. COMPARISON: None. TECHNIQUE: Multiple grayscale and color images of the right upper quadrant of the abdomen. FINDINGS: Pancreas: The imaged portion of the pancreas is within normal limits with no focal mass or peripancreatic fluid collection identified. Liver: The liver is homogeneous in echogenicity There is no evidence for a focal mass. There is no intrahepatic biliary duct dilatation. Gallbladder: The gallbladder is well distended with a 1.1 cm nonmobile calculus present within the neck of the gallbladder. There is mild gallbladder wall thickening measuring 4 mm. No pericholecystic edema is seen. However, there was reportedly a positive sonographic Brunson sign. Common Bile Duct: (CBD): The common bile duct is mildly dilated measuring 10 mm. . Inferior Vena Cava (IVC): The imaged IVC is patent. Right kidney: There is no evidence for hydronephrosis, calculus or gross renal mass. The kidney is normal in size. IMPRESSION: 1. Evidence for nonmobile calculus within the neck of the gallbladder with gallbladder wall thickening and positive sonographic Brunson sign. Findings are suspicious for early acute cholecystitis. 2. This also mild dilatation of the common bile duct. ACT 112: Negative or not required by law. Electronically signed by: Ramakrishna Palmer M.D. 03/15/2022 12:26 PM Discharge Plan Visit Data Chief Complaint: GI Assessment Stated Complaint: CHEST PAIN,NAUSEA Discharge Problem: Cholelithiases, Epigastric abdominal pain, Elevated AST (SGOT), Elevated ALT measurement, Intractable nausea and vomiting Patient Disposition: Admitted As Inpatient Discharge Instructions Interventions: ED Discharge Assessment Last Done: 03/15/22 14:49 Discharge Problem: Cholelithiases Qualifiers: Cholelithiasis location: gallbladder and bile duct Cholecystitis presence: without cholecystitis Biliary obstruction: with biliary obstruction Qualified Code(s): K80.71 - Calculus of gallbladder and bile duct without cholecystitis with obstruction
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
[2022-03-15] MEDS ORDERED: ALBUTEROL HFA 8 GM INHALER INH PRN (15:22)
[2022-03-15] MEDS ORDERED: ONDANSETRON INJ 2 MG/ML 2 ML VIAL IV PRN (15:22)
[2022-03-15] MEDS ORDERED: POLYETHYLENE (MIRALAX) 17 GM PACK PO PRN (15:22)
[2022-03-15] MEDS: LACTATED RINGER'S 1,000 ML IV SCH ×2 (15:26→23:34)
--- NOTE | 2022-03-15 17:56 | Magnetic Resonance Report ---
MR MRCP CLINICAL HISTORY: RUQ pain w/ stone in GB neck, CBD dilation TECHNIQUE: Multiplanar multisequence MR images were obtained of the abdomen, followed by reconstruct ion of MRCP imaging. COMPARISON: Gallbladder ultrasound from 03/15/2022 FINDINGS: Liver: There is homogeneous signal intensity seen within the liver. No mass lesions are seen. There i s no evidence for intrahepatic or duct dilatation. Gallbladder: As seen on the ultrasound, there is a stone present within the neck of the gallbladder. No evidence for pericholecystic edema or wall thickening is identified. Spleen: There is homogeneous signal throughout the splenic parenchyma. No mass lesions are seen. Pancreas: The pancreas is homogeneous in signal There is no evidence for a mass lesion. Kidneys: There is homogeneous signal throughout the renal parenchyma bilaterally. Adrenal glands: There is homogeneous signal demonstrated with no gross mass seen. Abdominal cavity: There is no gross bowel dilatation. There is no evidence for ascites or adenopathy. The aorta is normal in caliber. The visualized osseous structures, demonstrate no evidence of abnormal signal intensity. MRCP: As seen on ultrasound, the common bile duct is mildly dilated measuring 12 mm. There is no evid ence for choledocholithiasis. However, there is narrowing of the common bile duct at the level of the ampulla. No focal mass is seen. Consider ERCP for further evaluation. This is best seen on image 21 of the axial Fiesta fat 2D sequence and image 14 of the coronal Fiesta fat 2D sequence . There is no evidence for pancreatic duct dilatation. IMPRESSION: 1. Stone is again seen within the neck of the gallbladder with no evidence for wall thickening or per icholecystic edema. 2. There is no evidence for choledocholithiasis. 3. However, there is again dilatation of the common bile duct with symmetric narrowing of the distal common bile duct at the ampulla. Follow-up standard ERCP may be helpful for further evaluation. ACT 112: Negative or not required by law. Electronically signed by: Ramakrishna Palmer M.D. 03/15/2022 5:53 PM
[2022-03-16 06:12] LABS: Basophils # (auto) 0.02 K/uL (0-0.2); Basophils % (auto) 0.2 %; Eosinophils # (auto) 0.17 K/uL (0-0.5); Eosinophils % (auto) 2.1 %; Hematocrit (blood only) 36.2 % (37-47); Hemoglobin 11.8 g/dL (12.0-16.0); Immature Granulocytes # (auto) 0.02 K/uL (0.00-0.02); Immature Granulocytes % (auto) 0.2 %; Lymphocytes % (auto) 25.7 %; Mean Corpuscular Hemoglobin 28.1 pg (25-34); Mean Corpuscular Hgb Conc 32.6 g/dL (32-36); Mean Corpuscular Volume 86.2 fL (80-100); Mean Platelet Volume 9.2 fL (7.4-10.4); Monocytes # (auto) 0.56 K/uL (0.11-0.59); Monocytes % (auto) 6.9 %; Neutrophils % (auto) 64.9 %; Platelet Count 293 K/uL (130-400); White Blood Count 8.17 K/uL (4.8-10.8)
[2022-03-16 06:46] LABS: Albumin Globulin Ratio 1.4 (0.9-2); Albumin Level 3.6 gm/dl (3.4-5.0); Calcium 8.4 mg/dl (8.5-10.1); Creatinine Clr Calc Pharmacy 163.3 ml/min; Est GFR (African American) 138.4 ml/min; Est GFR (Non-African American) 119.4 ml/min; Globulin 2.5 gm/dl (2.5-4.0); Potassium 3.6 mmol/L (3.5-5.1); Total Protein 6.1 gm/dl (6.0-8.3)
[2022-03-16] MEDS: LACTATED RINGER'S 1,000 ML IV SCH (07:29)
[2022-03-16] MEDS: ACETAMINOPHEN 1000 MG/100 ML IV IV PRN ×2 (09:03→22:13)
[2022-03-16] MEDS: FAMOTIDINE 20 MG in SYRINGE 3 ML IV SCH (09:59)
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
--- NOTE | 2022-03-16 12:21 | Surgery Consultation ---
Date of Consultation March 16, 2022 Assessment & Plan (1) Cholelithiases: see below (2) Acute cholecystitis due to biliary calculus: pt is a 36 year-old female who was admitted to hospital for acute RUQ pain, IMP: acute cholecystitis, cholelithiasis, plan, I recommend to do laparoscopic cholecystectomy, possible open or cholangiogram, D/w benefits, risks and alternatives of the surgery, the risks - infection, bleeding, injury other organs, incisional hernia, may need ERCP, pt understood, she agrees with surgery, she signed informed consent, I answered all questions, NPO after MN, adrienne cabrera, Supervising Physician Co-Signing Physician Notes Discussed case with CHETAN, agree with her note above. This is a 36-year-old female, recently . Presents with abdominal pain, found to have choledocholithiasis with question of acute cholelithiasis. Vitals stable. General surgery consulted, patient is scheduled for MRCP, further course depending on those results. 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 She woke up this morning with pain, and has associated nausea and multiple episodes of nonbloody emesis. She has never experienced this pain before. She denies fever/chills, yellowing the skin, confusion, weakness. Has a family history of gallbladder disease in her mother, who required surgery, no personal history of such other abdominal surgeries. In ED, she is hypertensive 157/101, HR 57. Labs largely unremarkable, significant for AST 54 ALT 98. GB U/S showed evidence of a nonmobile calculus within the gallbladder, as well as gallbladder thickening and positive Brunson sign. Also since dilation of common bile duct. CXR unremarkable. Did achieve improvement in ED following IV fluid hydration, APAP, Pepcid, Zofran, diphenhydramine, Reglan. I ( Lo Keith MD) got a call for consult acute cholecystitis, and cholelithiasis, I reviewed pt's H/P , labs, U/S and MRCP with pt, pt feels better, no vomiting, no fever, less abdpominal pain. Allergies Allergy/AdvReac Type Severity Reaction Status Date / Time bee venom protein (honey bee) Allergy Severe SEVERE VerifiedB 02/15/22 04:53 SWELLING strawberry Allergy Severe Anaphylaxis Verified 02/15/22 04:53 pollen extracts Allergy Intermediate CONGESTION Verified 02/15/22 04:53 Sulfa (Sulfonamide Allergy Intermediate INTESTINAL Verified 02/15/22 04:53 Antibiotics) PAIN, HIVES PET DANDER Allergy Intermediate EYES PUFFY Uncoded 10/10/21 10:21 IF CONTACT TO FACE, RESP. DIFFICULTY Home Medications Medication Instructions Recorded Confirmed Type zinc 50 mg tablet 50 mg PO DAILY 05/21/21 02/15/22 History cholecalciferol (vitamin D3) 1 tab PO DAILY 09/09/21 02/15/22 Hi story COVID-19 antigen test ([facility] #5 ea 10/21/21 Rx COVD Ag Card Home Tst) multivitamin 1 tab PO DAILY 02/15/22 02/15/22 History Past Med/Surg History Medical History Acute Crohn's disease Asthma USES INHALER SEASONALLY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 Claustrophobia GERD (gastroesophageal reflux disease) Hx of gastritis Migraine headache Seasonal allergies Varicella vaccination Cznew-Lultyylel-Bvooz syndrome HX OF Surgical History H/O cardiac radiofrequency ablation AT AGE 21 (IN [place]>[facility]H/O wisdom tooth extraction History of anesthesia reaction "SENSITIVE TO ANESTHESIA". WOKE UP IN MIDDLE OF CARDIAC ABLATION>PANIC ATT ACKHistory of dilatation and curettage History of esophagogastroduodenoscopy (EGD) Ingrown toenail REPAIRED Family History Mother Anxiety DepressionFather Skin cancer Anxiety DepressionGrandmother Skin cancer Breast cancer Hypertension Crohn's disease great grandmotherGrandfather Alcohol abuse Heart disease Myocardial infarctionOther No family history of adverse response to anesthesia Denies family history of Ovarian cancer Prostate cancer Colorectal cancer Social History(Updated 02/13/22 @ 08:17 by Sabrina Toscano RN) Smoking Status: Former smoker Tobacco Type: Cigarettes Second Hand Exposure: No; Hx Alcohol Use: No Hx Substance Use: No Preferred Language: Kinyarwanda Communication Ability: Effective Visual Impairment: No Limitations Hearing Ability: Normal Community Service Officer Required: No Beliefs That Will Affect Care: None marital status: marital status details: Harry Chiu (33) [phone] Current Living Situation: Spouse Current Living Situation Comment: house with current occupational status: employed and unemployed 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 Other Information That Helps Us Care for You: No Feels Safe at Home: Yes Childhood Exposure to Second-Hand Smoke: No Dental Care, Regularly: Yes Physical Activity Frequency: 3-4 Times per Week Assistive Devices: Glasses Review of Systems Review of Systems: Constitutional: No fever/chills, weakness, fatigue, myalgias, anorexia, night sweats Eyes: No diplopia, no worsening or blurred vision ENT: normal hearing, no trouble swallowing Respiratory: No cough, sputum, dyspnea at rest or on exertion Cardiovascular: No chest pain, tightness or palpitations Abdomen: Right upper quadrant pain with radiation to shoulder blades, nausea, vomiting since this morning; no diarrhea or constipation : Denies dysuria, hematuria, increased urgency/frequency, urinary retention Musculoskeletal: No joint pain, calf pain, swelling Neurologic: No weakness, numbness/tingling, or balance problems Psychiatric: No anxiety or depression Skin: No rash or itch Allergies Allergy/AdvReac Type Severity Reaction Status Date / Time bee venom protein (honey bee) Allergy Severe SEVERE Verified 02/15/22 04:53 SWELLING strawberry Allergy Severe Anaphylaxis Verified 02/15/22 04:53 pollen extracts Allergy Intermediate CONGESTION Verified 02/15/22 04:53 Sulfa (Sulfonamide Allergy Intermediate INTESTINAL Verified 02/15/22 04:53 Antibiotics) PAIN, HIVES PET DANDER Allergy Intermediate EYES PUFFY Uncoded 10/10/21 10:21 IF CONTACT TO FACE, RESP. DIFFICULTY Home Medications Medication Instructions Recorded Confirmed Type zinc 50 mg tablet 50 mg PO DAILY 05/21/21 02/15/22 History cholecalciferol (vitamin D3) 1 tab PO DAILY 09/09/21 02/15/22 History COVID-19 antigen test ([facility] #5 ea 10/21/21 Rx COVD Ag Card Home Tst) multivitamin 1 tab PO DAILY 02/15/22 02/15/22 History Patient History Medical History Acute Crohn's disease Asthma USES INHALER SEASONALLY 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 Claustrophobia GERD (gastroesophageal reflux disease) Hx of gastritis Migraine headache Seasonal allergies Varicella vaccination Vhkta-Yydefvpzw-Zkqdj syndrome HX OF Surgical History H/O cardiac radiofrequency ablation AT AGE 21 (IN [place] H/O wisdom tooth extraction History of anesthesia reaction "SENSITIVE TO ANESTHESIA". WOKE UP IN MIDDLE OF CARDIAC ABLATION>PANIC ATTACK History of dilatation and curettage History of esophagogastroduodenoscopy (EGD) Ingrown toenail REPAIRED Family History Mother Anxiety Depression Father Skin cancer Anxiety Depression Grandmother Skin cancer Breast cancer Hypertension Crohn's disease great grandmother Grandfather Alcohol abuse Heart disease Myocardial infarction Other No family history of adverse response to anesthesia Denies family history of Ovarian cancer Prostate cancer Colorectal cancer Social History Smoking Status: Former smoker Tobacco Type: Cigarettes Second Hand Exposure: No; Hx Alcohol Use: No Hx Substance Use: No Preferred Language: Kinyarwanda Communication Ability: Effective Visual Impairment: No Limitations Hearing Ability: Normal Community Service Officer Required: No Beliefs That Will Affect Care: None marital status: marital status details: Harry Chiu (33) [phone] Current Living Situation: Spouse Current Living Situation Comment: house with current occupational status: employed and unemployed 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 Other Information That Helps Us Care for You: No Feels Safe at Home: Yes Childhood Exposure to Second-Hand Smoke: No Dental Care, Regularly: Yes Physical Activity Frequency: 3-4 Times per Week Assistive Devices: None Physical Exam Constitutional: WD/WN, vitals as above Eyes: PERRL, conjunctivae normal, anicteric sclerae Neck: trachea midline, no thyromegaly Respiratory: normal respiratory effort, lungs clear to auscultation Cardiovascular: RRR, no murmur, no edema Gastrointestinal (Abdomen): mild tenderness at RUQ, no rebound pain, no distend, BS + Musculoskeletal: no cyanosis or clubbing, extremities motor strength 5/5 Neurologic: patellar DTR's 2+ bilat, sensation intact Psychiatric: A+Ox3, euthymic affect Results & Data ([facility]) Vital Signs (Past 12 Hours) Vital Signs Temp Pulse Pulse Resp BP Pulse Ox 03/16/22 11:41 52 L 131/78 03/16/22 11:25 36.7 C 66 18 160/100 H 97 03/16/22 07:59 36.9 C 64 18 122/78 96 Laboratory Results Abnormal Labs 03/15/22 03/15/22 03/16/22 09:55 09:55 05:44 Hgb 11.8 L Hct 36.2 L [place] # (Auto) 0.60 H Immature Gran # (Auto) 0.03 H Creatinine BUN/Creatinine Ratio 25.4 H Glucose 107 H Calcium AST 44 H ALT 98 H 03/16/22 05:44 Hgb Hct [place] # (Auto) Immature Gran # (Auto) Creatinine 0.58 L BUN/Creatinine Ratio Glucose Calcium 8.4 L AST 53 H ALT 98 H Diagnostic Findings MR MRCP CLINICAL HISTORY: RUQ pain w/ stone in GB neck, CBD dilation TECHNIQUE: Multiplanar multisequence MR images were obtained of the abdomen, followed by reconstruction of MRCP imaging. COMPARISON: Gallbladder ultrasound from 03/15/2022 FINDINGS: Liver: There is homogeneous signal intensity seen within the liver. No mass lesions are seen. There is no evidence for intrahepatic or duct dilatation. Gallbladder: As seen on the ultrasound, there is a stone present within the neck of the gallbladder. No evidence for pericholecystic edema or wall thickening is identified. Spleen: There is homogeneous signal throughout the splenic parenchyma. No mass lesions are seen. Pancreas: The pancreas is homogeneous in signal There is no evidence for a mass lesion. Kidneys: There is homogeneous signal throughout the renal parenchyma bilaterally. Adrenal glands: There is homogeneous signal demonstrated with no gross mass seen. Abdominal cavity: There is no gross bowel dilatation. There is no evidence for ascites or adenopathy. The aorta is normal in caliber. The visualized osseous structures, demonstrate no evidence of abnormal signal intensity. MRCP: As seen on ultrasound, the common bile duct is mildly dilated measuring 12 mm. There is no evidence for choledocholithiasis. However, there is narrowing of the common bile duct at the level of the ampulla. No focal mass is seen. Consider ERCP for further evaluation. This is best seen on image 21 of the axial Fiesta fat 2D sequence and image 14 of the coronal Fiesta fat 2D sequence . There is no evidence for pancreatic duct dilatation. IMPRESSION: 1. Stone is again seen within the neck of the gallbladder with no evidence for wall thickening or pericholecystic edema. 2. There is no evidence for choledocholithiasis. 3. However, there is again dilatation of the common bile duct with symmetric narrowing of the distal common bile duct at the ampulla. Follow-up standard ERCP may be helpful for further evaluation. US gallbladder CLINICAL HISTORY: upper abdominal pain. COMPARISON: None. TECHNIQUE: Multiple grayscale and color images of the right upper quadrant of the abdomen. FINDINGS: Pancreas: The imaged portion of the pancreas is within normal limits with no focal mass or peripancreatic fluid collection identified. Liver: The liver is homogeneous in echogenicity There is no evidence for a focal mass. There is no intrahepatic biliary duct dilatation. Gallbladder: The gallbladder is well distended with a 1.1 cm nonmobile calculus present within the neck of the gallbladder. There is mild gallbladder wall thickening measuring 4 mm. No pericholecystic edema is seen. However, there was reportedly a positive sonographic Brunson sign. Common Bile Duct: (CBD): The common bile duct is mildly dilated measuring 10 mm. . Inferior Vena Cava (IVC): The imaged IVC is patent. Right kidney: There is no evidence for hydronephrosis, calculus or gross renal mass. The kidney is normal in size. IMPRESSION: 1. Evidence for nonmobile calculus within the neck of the gallbladder with gallbladder wall thickening and positive sonographic Brunson sign. Findings are suspicious for early acute cholecystitis. 2. This also mild dilatation of the common bile duct. (1) Cholelithiases Biliary obstruction: with biliary obstruction Cholecystitis presence: without cholecystitis Cholelithiasis location: gallbladder and bile duct Qualified Code(s): K80.71 - Calculus of gallbladder and bile duct without cholecystitis with obstruction
--- NOTE | 2022-03-16 12:58 | Hospitalist Progress Note ---
Date of Service March 16, 2022 Assessment & Plan (1) Acute cholecystitis due to biliary calculus: Plan: RUQ U/S with evidence for nonmobile calculus within the neck of the gallbladder with gallbladder wall thickening and positive sonographic Brunson sign. Findings are suspicious for early acute cholecystitis. This also mild dilatation of the common bile duct. MRCP confirmed stone, but did not show gallbladder wall thickening. No stones in CBD. - General surgery consulted - Plan for lap david tomorrow. - GI consulted - Presently no indication for ERCP, but if intra-operative cholangiogram shows retained stone, may need one during operation. GI following. - NPO @ midnight. - Plan of care discussed with both GI and surgery today. (2) Choledocholithiasis: Plan: Ruled out by imaging. (3) Crohn's ileitis: Plan: Sees an IBD specialist in [place]. Controlled with diet for now. - No inpatient needs at present. (4) Asthma: Plan: Has not required her inhaler for a long time. - Albuterol inhaler as needed. (5) Migraine headache: Plan: Takes Imitrex as needed, however has not required this in a long time. - Monitor Admission and Anticipated Discharge Date Admission Date: March 15, 2022 Subjective Doing fairly well when seen this AM. No abdominal pain (but some "discomfort"). She feels we should get the procedure done (lap david) if it is needed as she does not want to return with another episode. Reports no fevers/chills, chest pain, shortness of breath, nausea, or vomiting. Physical Exam Constitutional: WD/WN, vitals as above Eyes: EOM intact bilaterally; no conjunctival abnormality ENMT: external ear and nose normal, oropharynx normal Neck: trachea midline, no thyromegaly normal visual inspection Respiratory: normal respiratory effort, lungs clear to auscultation no respiratory distress Cardiovascular: RRR, no murmur, no edema Gastrointestinal (Abdomen): Inspection/Auscultation: abdomen normal to inspection; abdomen not distended Musculoskeletal: no cyanosis or clubbing, extremities motor strength 5/5 Skin: no rashes, warm and dry Neurologic: moves all extremities and awake Psychiatric: Orientation: alert, oriented to person and cooperative Results & Data Results & Data ([facility]) Vital Signs (Past 12 Hours) Vital Signs Temp Pulse Pulse Resp BP Pulse Ox 06/13/22 11:41 52 L 131/78 03/16/22 11:25 36.7 C 66 18 160/100 H 97 03/16/22 07:59 36.9 C 64 18 122/78 96 PG Care Time/CCT Total # of Minutes Spent Total Time Spent with Patient: Total time spent is greater than 50% in coordination of care (as documented) at patient's floor/unit and/or counseling patient: Coding Level of Care Code 15395 Subseq Hosp Care Lvl 3 Diagnoses Choledocholithiasis K80.50 Crohn's ileitis K50.00 Asthma J45.909 Migraine headache G43.909 Acute cholecystitis due to biliary calculus K80.00
[2022-03-16] MEDS ORDERED: SODIUM CHLORIDE 0.9% 1000ML 1,000 ML IV SCH (22:30)
[2022-03-17 06:34] LABS: Hematocrit (blood only) 36.1 % (37-47); Hemoglobin 11.9 g/dL (12.0-16.0); Mean Corpuscular Hemoglobin 28.7 pg (25-34); Mean Corpuscular Volume 87.2 fL (80-100); Platelet Count 283 K/uL (130-400); RDW Coefficient of Variation 12.8 % (11.5-14.5); RDW Standard Deviation 41.2 fL (36.4-46.3); Red Blood Count 4.14 M/uL (4.2-5.4); White Blood Count 7.33 K/uL (4.8-10.8)
[2022-03-17 06:51] LABS: Est GFR (African American) 134.7 ml/min; Potassium 3.7 mmol/L (3.5-5.1)
[2022-03-17 06:52] LABS: Albumin Globulin Ratio 1.5 (0.9-2); Albumin Level 3.7 gm/dl (3.4-5.0); BUN Creatinine Ratio 14.3 (10-20); Calcium 8.5 mg/dl (8.5-10.1); Creatinine Clr Calc Pharmacy 150.4 ml/min; Est GFR (Non-African American) 116.2 ml/min; Globulin 2.5 gm/dl (2.5-4.0); Magnesium 1.9 mg/dl (1.7-2.4); Total Protein 6.2 gm/dl (6.0-8.3)
[2022-03-17] MEDS: FAMOTIDINE 20 MG in SYRINGE 3 ML IV SCH (09:05)
--- NOTE | 2022-03-17 10:43 | Gastroenterology Progress Note ---
Date of Service March 17, 2022 Assessment & Plan (1) Elevated AST (SGOT): (2) Elevated ALT measurement: (3) Bile duct, common, cystic dilatation: Plan: EUS to investigate for possible choledocholithiasis. ERCP today if indicated. Appreciate surgical management of acute cholecystitis and plan for cholecystectomy. Admission and Anticipated Discharge Date Admission Date: March 15, 2022 Supervising Physician Co-Signing Physician Notes Late entry: Patient was seen and examined on 03/17 with JACOB Ziegler whose no te reflects our findings and plan. Subjective 36, female, 1 month . Admitted 03/15 with symptomatic cholelithiasis/acute cholecystitis also w mild bile duct dilation, moderate transaminase elevation (stable x 3 days), with normal bilirubin. GI plan is for EUS today. We will progress to ERCP if any evidence of choledocholithiasis or other bile duct abnormalities. This morning is free of pain. No jaundice or icterus. Review of Systems Review of Systems: ROS: Gen: + Has been emotional, tearful in the last few days but feeling calm this morning. Denies weakness, fevers, weight loss Eyes: No eye redness, or pain, no recent vision changes Resp: No SOB, no cough Cardio: No palpitations/irregular beats, no chest pain GI: No abdominal pain, no nausea/vomiting : Denies pain on urination Skin: No jaundice, itching or new rashes Physical Exam Constitutional: well developed and cooperative Eyes: PERRL, conjunctivae normal, anicteric sclerae Respiratory: normal respiratory effort, lungs clear to auscultation Cardiovascular: RRR, no murmur, no edema Gastrointestinal (Abdomen): normal bowel sounds, soft, nontender, no hepatosplenomegaly Skin: no rashes, warm and dry normal turgor and + pallor Neurologic: PERRL, EOMI, accommodation nl, no face palsy, no dysarthria awake; not confused Psychiatric: A+Ox3, euthymic affect Orientation: alert, oriented x 3 and cooperative Results & Data ([facility]) Vital Signs (Past 12 Hours) Vital Signs Temp Pulse Resp BP Pulse Ox 03/17/22 07:16 37.1 C 54 L 18 116/68 97 Laboratory Results WBC 7.3, H be 11.9, HCT 36.1, PLT S2 83, NA 139, K3.7, CL 107, CO2 26, BUN 9, CR 0.63, glucose 80 5T bili 1, AST 53, ALT 102, alk phos 51. Diagnostic Findings MRCP 03/15/2022: 1. Stone is again seen within the neck of the gallbladder with no evidence for wall thickening or pericholecystic edema. 2. There is no evidence for choledocholithiasis. 3. However, there is again dilatation of the common bile duct with symmetric narrowing of the distal common bile duct at the ampulla. Follow-up standard ERCP may be helpful for further evaluation. Gallbladder ultrasound 03/15/2022: 1. Evidence for nonmobile calculus within the neck of the gallbladder with gallbladder wall thickening and positive sonographic Brunson sign. Findings are suspicious for early acute cholecystitis. 2. This also mild dilatation of the common bile duct.
--- NOTE | 2022-03-17 12:08 | Anesthesiology Consultation ---
Date of Service March 17, 2022 Assessment & Plan Chart Review Chart Review: Acceptable Risk for Surgery and Patient NOT seen in Pre Admission Testing Consults Requested none ASA ASA2 Proposed Anesthesia Anesthesia Type: General Risk / Benefits Reviewed With: PT / POA / Parent / Guardian, Accepts Plan and Informed Consent Obtained Additional Comments: covid test neg. History Surgery Operation Date: 03/17/22 12:30 Proposed Procedures p Laparoscopic Cholecystectomy - MD sharmin Tubbs Endoscopic Ultrasonography Upper possible - Caroline Hdez DO s Endoscopic Retrograde Cholangiopancreatogram - Caroline Hdez DO Height/Weight Height: 5 ft 6 in Weight: 102.1 kg Allergies Allergy/AdvReac Type Severity Reaction Status Date / Time bee venom protein (honey bee) Allergy Severe SEVERE Verified 02/15/22 04:53 SWELLING strawberry Allergy Severe Anaphylaxis Verified 02/15/22 04:53 pollen extracts Allergy Intermediate CONGESTION Verified 02/15/22 04:53 Sulfa (Sulfonamide Allergy Intermediate INTESTINAL Verified 02/15/22 04:53 Antibiotics) PAIN, HIVES PET DANDER Allergy Intermediate EYES PUFFY Uncoded 10/10/21 10:21 IF CONTACT TO FACE, RESP. DIFFICULTY Medications Home Medications Medication Instructions Recorded Confirmed Last Taken zinc 50 mg tablet 50 mg PO DAILY 05/21/21 02/15/22 02/14/22 cholecalciferol (vitamin D3) 1 tab PO DAILY 09/09/21 02/15/22 02/14/22 COVID-19 antigen test ([facility] #5 ea 10/21/21 Unknown COVD Ag Card Home Tst) multivitamin 1 tab PO DAILY 02/15/22 02/15/22 02/14/22 Active Medications Generic Name Dose Route Start Last Admin Trade Name Freq PRN Reason Stop Dose Admin Acetaminophen 1,000 mg 03/15/22 15:22 03/16/22 22:13 Acetaminophen 1000 Mg/100 Ml Iv IV 03/18/22 15:21 1,000 mg Q8H PRN Administration Pain (1,2,3) or Fever Famotidine 20 mg/ Syringe 5 mls @ 2.5 mls/min 03/16/22 09:00 03/17/22 09:05 IV 04/15/22 08:59 2.5 mls/min DAILY SHADIA Administration Ondansetron HCl 4 mg 03/15/22 15:22 03/16/22 09:49 Ondansetron Inj 2 Mg/Ml 2 Ml Vial IV 04/14/22 15:21 4 mg Q6H PRN Administration Nausea NPO Date Last Intake of Fluids: 03/16/22 Time Last Intake of Fluids: 23:59 Date Last Intake of Solids: 03/15/22 Time Last Intake of Solids: 05:00 Past Medical History Medical History Acute Crohn's disease Asthma USES INHALER SEASONALLY 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 Claustrophobia GERD (gastroesophageal reflux disease) Hx of gastritis Migraine headache Seasonal allergies Varicella vaccination Kyrpy-Gdczmxdnn-Xmhvd syndrome HX OF Exercise / Class Metabolic Activity II 4-5 Yardwork/Stairs/Walk up hill Past Family History Family History Mother Anxiety Depression Father Skin cancer Anxiety Depression Grandmother Skin cancer Breast cancer Hypertension Crohn's disease great grandmother Grandfather Alcohol abuse Heart disease Myocardial infarction Other No family history of adverse response to anesthesia Denies family history of Ovarian cancer Prostate cancer Colorectal cancer Past Surgical History Surgical History H/O cardiac radiofrequency ablation AT AGE 21 (IN [place]>[facility]?) H/O wisdom tooth extraction History of anesthesia reaction "SENSITIVE TO ANESTHESIA". WOKE UP IN MIDDLE OF CARDIAC ABLATION>PANIC ATTACK History of dilatation and curettage History of esophagogastroduodenoscopy (EGD) Ingrown toenail REPAIRED Past Anesthesia History No Hx of Anesthesia Complications and No Family Hx of Anesthesia Complications History of PONV No Hx of PONV and No Hx of Motion Sickness Social History Smoking Status: Former smoker tobacco type: cigarettes Hx Alcohol Use: No alcohol intake frequency: a few times a month Hx Substance Use: No substance use type: does not use Physical Exam Vital Signs Last Vital Signs Temp 37.1 C 03/17/22 07:16 Pulse 54 L 03/17/22 07:16 Resp 18 03/17/22 07:16 BP 116/68 03/17/22 07:16 Pulse Ox 97 03/17/22 07:16 Constitutional + obese ENMT Mouth: no dentition abnormality Thyromental Distance: < 3.5 Finger Breadths Mallampati Class: II Neck normal visual inspection and trachea midline; neck extension not limited Respiratory normal respiratory effort Auscultation: lungs clear to auscultation bilaterally Cardiovascular Rate/Rhythm: regular rate and regular rhythm Heart Sounds: no murmur Vessels: no carotid bruit Musculoskeletal Spine: normal cervical ROM Extremities: extremities normal to inspection Neurologic moves all extremities Motor/Sensory: no sensory deficit Psychiatric Orientation: alert and oriented x 3 Testing Laboratory Results 03/17/22 06:02 03/17/22 06:02
[2022-03-17] MEDS ORDERED: NALOXONE HCL 0.4 MG/1 ML VIAL/CARP IV PRN (12:10)
[2022-03-17] MEDS ORDERED: LABETALOL HCL IV 5 MG/ML 20ML IV PRN (12:10)
[2022-03-17] MEDS ORDERED: fentaNYL citrate 100 MCG/2 ML VIAL IV PRN (12:10)
[2022-03-17] MEDS ORDERED: FLUMAZENIL 0.1 MG/1 ML 10 ML VIAL IV PRN (12:10)
[2022-03-17] MEDS ORDERED: ePHEDrine sulfate 50 MG/ML AMP IV PRN (12:10)
[2022-03-17] MEDS ORDERED: ATROPINE SULFATE 0.1 MG/ML 10ML SYR IV PRN (12:10)
[2022-03-17] MEDS ORDERED: HYDROmorphone INJ 1 MG/ML SYRINGE IV PRN (12:10)
[2022-03-17] MEDS ORDERED: BACITRACIN OINT 15 GM TUBE ONE (12:24)
[2022-03-17] MEDS ORDERED: BUPIVACAINE 0.5 % 5 MG/1 ML MPF 30ML VIAL ONE (12:24)
[2022-03-17] MEDS ORDERED: LIDOCAINE 1% LOCAL 20 ML VIAL ONE (12:24)
--- NOTE | 2022-03-17 12:31 | History & Physical Bridge Note ---
Date of Service March 17, 2022 History & Physical Bridge Note I have examined the patient, reviewed the History & Physical and in the interval since the performance of the History & Physical I have noted the following changes of clinical significance: no changes noted. We have discussed the risks and benefits of EUS and ERCP to include bleeding, infection, perforation, pain, pancreatitis, failed biliary cannulation and the need for follow-up studies.
[2022-03-17] MEDS ORDERED: INDOMETHACIN 50 MG SUPP PR ONE (12:32)
[2022-03-17] MEDS ORDERED: PROPOFOL IV EMULSION 10 MG/ML 20 ML VIAL IV ONE (12:33)
[2022-03-17] MEDS ORDERED: MIDAZOLAM HCL 1 MG/ML 2ML VIAL ONE (12:34)
[2022-03-17] MEDS ORDERED: SUCCINYLCHOLINE CHLORIDE 20 MG/ML 10 ML VIAL IV ONE (12:35)
[2022-03-17] MEDS ORDERED: fentaNYL citrate 100 MCG/2 ML VIAL ONE ×3 (12:35→14:06)
--- NOTE | 2022-03-17 12:49 | History & Physical Bridge Note ---
Date of Service March 17, 2022 History & Physical Bridge Note I have examined the patient, reviewed the History & Physical and in the interval since the performance of the History & Physical I have noted the following changes of clinical significance: no changes noted
[2022-03-17] MEDS ORDERED: ceFAZolin 2,000 MG/15 ML IV PUSH IV ONE (12:51)
[2022-03-17] MEDS: ceFAZolin 2000MG 2,000 MG/15 ML SYR IV ONE ×2 (12:52→15:11)
[2022-03-17] MEDS ORDERED: DEXAMETHASONE SOD INJ 4 MG/ML VIAL ONE (13:14)
[2022-03-17] MEDS ORDERED: ONDANSETRON INJ 2 MG/ML 2 ML VIAL ONE (13:14)
--- NOTE | 2022-03-17 13:14 | GI REPORT ---
Patient Name: Daxa Rios Procedure Date: 03/17/2022 12:40 PM Date of : 1985 Admit Type: Inpatient Age: 36 Gender: Female Attending MD: Caroline Hdez DO Procedure: Upper GI endoscopy Providers: Caroline Hdez DO Referring MD: Ronel Tubbs Md, Alex Child Md Indications: Epigastric abdominal pain Medicines: General Anesthesia Complications: No immediate complications. Estimated blood loss: Minimal. Estimated Blood Loss: Estimated blood loss was minimal. Procedure: Pre-Anesthesia Assessment: - Prior to the procedure, a History and Physical was performed, and patient medications, allergies and sensitivities were reviewed. The patient's tolerance of previous anesthesia was reviewed. - The risks and benefits of the procedure and the sedation options and risks were discussed with the patient. All questions were answered and informed consent was obtained. - Patient identification and proposed procedure were verified prior to the procedure by the physician, the nurse and the rn acls. The procedure was verified in the procedure room. - Pre-procedure physical examination revealed no contraindications to sedation. - ASA Grade Assessment: II - A patient with mild systemic disease. - After reviewing the risks and benefits, the patient was deemed in satisfactory condition to undergo the procedure. - The anesthesia plan was to use general anesthesia. - Immediately prior to administration of medications, the patient was re-assessed for adequacy to receive sedatives. - The heart rate, respiratory rate, oxygen saturations, blood pressure, adequacy of pulmonary ventilation, and response to care were monitored throughout the procedure. - The physical status of the patient was re-assessed after the procedure. After obtaining informed consent, the endoscope was passed under direct vision. Throughout the procedure, the patient's blood pressure, pulse, and oxygen saturations were monitored continuously. The Endoscope was introduced through the mouth, and advanced to the third part of duodenum. The upper GI endoscopy was accomplished without difficulty. The patient tolerated the procedure well. Findings: The examined esophagus was normal. The Z-line was regular and was found 35 cm from the incisors. The entire examined stomach was normal. The examined duodenum was normal. Impression: - Normal esophagus. - Z-line regular, 35 cm from the incisors. - Normal stomach. - Normal examined duodenum. - No specimens collected. Recommendation: - Perform an upper endoscopic ultrasound (UEUS) today. Caroline Hdez D.O. Caroline Hdez, 03/17/2022 1:13:29 PM This report has been signed electronically. Note Initiated On: 03/17/2022 12:40 PM Number of Addenda: 0 I attest to the content of the Intraoperative Record and orders documented therein, exceptions below {[id number]}
--- NOTE | 2022-03-17 13:23 | GI REPORT ---
Patient Name: Daxa Rios Procedure Date: 03/17/2022 12:42 PM Date of : 1985 Admit Type: Inpatient Age: 36 Gender: Female Attending MD: Caroline Hdez DO Procedure: Upper EUS Providers: Caroline Hdez DO Referring MD: Ronel Tubbs Md, Alex Child Md Indications: Common bile duct dilation (acquired) seen on MRCP, Elevated liver enzymes, Epigastric abdominal pain, Abdominal pain in the right upper quadrant Medicines: General Anesthesia Complications: No immediate complications. Estimated blood loss: Minimal. Estimated Blood Loss: Estimated blood loss was minimal. Procedure: Pre-Anesthesia Assessment: - Prior to the procedure, a History and Physical was performed, and patient medications, allergies and sensitivities were reviewed. The patient's tolerance of previous anesthesia was reviewed. - The risks and benefits of the procedure and the sedation options and risks were discussed with the patient. All questions were answered and informed consent was obtained. - Patient identification and proposed procedure were verified prior to the procedure by the physician, the nurse and the machine worker. The procedure was verified in the procedure room. - Pre-procedure physical examination revealed no contraindications to sedation. - ASA Grade Assessment: II - A patient with mild systemic disease. - After reviewing the risks and benefits, the patient was deemed in satisfactory condition to undergo the procedure. - The anesthesia plan was to use general anesthesia. - Immediately prior to administration of medications, the patient was re-assessed for adequacy to receive sedatives. - The heart rate, respiratory rate, oxygen saturations, blood pressure, adequacy of pulmonary ventilation, and response to care were monitored throughout the procedure. - The physical status of the patient was re-assessed after the procedure. After obtaining informed consent, the endoscope was passed under direct vision. Throughout the procedure, the patient's blood pressure, pulse, and oxygen saturations were monitored continuously.The esophageal manometry was accomplished without difficulty. The patient tolerated the procedure well. The Endosonoscope was introduced through the mouth, and advanced to the second part of duodenum. Findings: ENDOSONOGRAPHIC FINDING: : There was no sign of significant endosonographic abnormality in the ampulla. No pathologic lymphadenopathy and no masses were identified. There was dilation in the common bile duct which measured up to 10 mm. Multiple stones were visualized endosonographically in the common bile duct. The stones measured up to 5 mm in greatest dimension. The stones were round. They were hyperechoic. Multiple stones were visualized endosonographically in the gallbladder. The stones were round. They were hyperechoic and characterized by shadowing. There was no sign of significant endosonographic abnormality in the entire pancreas. No pathologic lymphadenopathy, no masses, no cysts. No lymphadenopathy seen. There was no sign of significant endosonographic abnormality in the visualized portion of the liver. Homogeneous parenchyma and no focal pathology were identified. Impression: - There was no sign of significant pathology in the ampulla. - There was dilation in the common bile duct which measured up to 10 mm. - Multiple stones were visualized endosonographically in the common bile duct. - Multiple stones were visualized endosonographically in the gallbladder. - There was no sign of significant pathology in the entire pancreas. - There was no evidence of significant pathology in the visualized portion of the liver. - No specimens collected. Recommendation: - Perform an ERCP today. Caroline Hdez D.O. Caroline Hdez, 03/17/2022 1:22:50 PM This report has been signed electronically. Note Initiated On: 03/17/2022 12:42 PM Number of Addenda: 0 I attest to the content of the Intraoperative Record and orders documented therein, exceptions below {[id number]}
[2022-03-17] MEDS ORDERED: ePHEDrine sulfate 50 MG/ML AMP ONE (13:45)
--- NOTE | 2022-03-17 13:47 | Hospitalist Progress Note ---
Date of Service March 17, 2022 Assessment & Plan (1) Acute cholecystitis due to biliary calculus: Plan: RUQ U/S with evidence for nonmobile calculus within the neck of the gallbladder with gallbladder wall thickening and positive sonographic Brunson sign. Findings are suspicious for early acute cholecystitis. This also mild dilatation of the common bile duct. MRCP confirmed stone, but did not show gallbladder wall thickening. No stones in CBD. - General surgery consulted - Plan for lap david today. - GI consulted - Plan for EUS today with surgery. (2) Choledocholithiasis: Plan: Ruled out by imaging. (3) Crohn's ileitis: Plan: Sees an IBD specialist in [place]. Controlled with diet for now. - No inpatient needs at present. (4) Asthma: Plan: Has not required her inhaler for a long time. - Albuterol inhaler as needed. (5) Migraine headache: Plan: Takes Imitrex as needed, however has not required this in a long time. - Monitor Admission and Anticipated Discharge Date Admission Date: March 15, 2022 Subjective Doing well today. Reports no fevers/chills, chest pain, shortness of breath, abdominal pain, nausea, or vomiting. Physical Exam Constitutional: WD/WN, vitals as above Eyes: EOM intact bilaterally; no conjunctival abnormality ENMT: external ear and nose normal, oropharynx normal Neck: trachea midline, no thyromegaly normal visual inspection Respiratory: normal respiratory effort, lungs clear to auscultation no respiratory distress Cardiovascular: RRR, no murmur, no edema Gastrointestinal (Abdomen): Inspection/Auscultation: abdomen normal to inspection; abdomen not distended Musculoskeletal: no cyanosis or clubbing, extremities motor strength 5/5 Skin: no rashes, warm and dry Neurologic: moves all extremities and awake Psychiatric: Orientation: alert, oriented to person and cooperative Results & Data Results & Data ([facility]) Vital Signs (Past 12 Hours) Vital Signs Temp Pulse Pulse Resp BP BP Pulse Ox 03/17/22 11:50 36.6 C 53 L 20 136/69 98 03/17/22 07:16 37.1 C 54 L 18 116/68 97 PG Care Time/CCT Total # of Minutes Spent Total Time Spent with Patient: Total time spent is greater than 50% in coordination of care (as documented) at patient's floor/unit and/or counseling patient: Coding Level of Care Code 84322 Subseq Hosp Care Lvl 2 Diagnoses Acute cholecystitis due to biliary calculus K80.00 Choledocholithiasis K80.50 Crohn's ileitis K50.00 Asthma J45.909 Migraine headache G43.909
--- NOTE | 2022-03-17 13:55 | GI REPORT ---
Patient Name: Daxa Rios Procedure Date: 03/17/2022 12:44 PM Date of : 1985 Admit Type: Inpatient Age: 36 Gender: Female Attending MD: Caroline Hdez DO Procedure: ERCP Providers: Caroline Hdez DO Referring MD: Ronel Tubbs Md, Alex Child Md Indications: Abdominal pain of suspected biliary origin, Elevated liver enzymes Medicines: General Anesthesia Complications: No immediate complications. Estimated blood loss: Minimal. Estimated Blood Loss: Estimated blood loss was minimal. Procedure: Pre-Anesthesia Assessment: - Prior to the procedure, a History and Physical was performed, and patient medications, allergies and sensitivities were reviewed. The patient's tolerance of previous anesthesia was reviewed. - The risks and benefits of the procedure and the sedation options and risks were discussed with the patient. All questions were answered and informed consent was obtained. - Patient identification and proposed procedure were verified prior to the procedure by the physician, the nurse and the real estate officer. The procedure was verified in the procedure room. - Pre-procedure physical examination revealed no contraindications to sedation. - ASA Grade Assessment: II - A patient with mild systemic disease. - After reviewing the risks and benefits, the patient was deemed in satisfactory condition to undergo the procedure in an ambulatory setting. - The anesthesia plan was to use general anesthesia. - Immediately prior to administration of medications, the patient was re-assessed for adequacy to receive sedatives. - The heart rate, respiratory rate, oxygen saturations, blood pressure, adequacy of pulmonary ventilation, and response to care were monitored throughout the procedure. - The physical status of the patient was re-assessed after the procedure. After obtaining informed consent, the scope was passed under direct vision. Throughout the procedure, the patient's blood pressure, pulse, and oxygen saturations were monitored continuously. The Duodenoscope was introduced through the mouth, and advanced to the duodenum and used to inject contrast into the bile duct and ventral pancreatic duct. The patient tolerated the procedure well. The ERCP was somewhat difficult due to challenging cannulation because of papillary stenosis. Successful completion of the procedure was aided by performing the maneuvers documented (below) in this report. Findings: The coffee supervisor film was normal. The esophagus was successfully intubated under direct vision without detailed examination of the pharynx, larynx, and associated structures, and upper GI tract. The upper GI tract was grossly normal. The major papilla was normal. The ventral pancreatic duct was inadvertently cannulated with the short-nosed traction sphincterotome and guidewire without any complications. The Guidewire was left in place to aid in biliary cannulation and later place a prophylactic pancreatic stent. The bile duct was deeply cannulated with the short-nosed traction sphincterotome and guidewire. Contrast was injected. I personally interpreted the bile duct images. The biliary orifice was stenotic. This appeared benign. The lower third of the main bile duct contained filling defect(s) thought to be a stone. The main bile duct was moderately dilated. The largest diameter was 10 mm. Biliary sphincterotomy was made with a Fusion OMNI sphincterotome using ERBE electrocautery. There was no post-sphincterotomy bleeding. One 5 Fr by 7 cm pancreatic stent with a full external pigtail and no internal flaps was placed 7 cm into the ventral pancreatic duct. Clear fluid flowed through the stent. The stent was in good position. To discover objects, the biliary tree was swept with a 15 mm balloon starting at the bifurcation. Two stones were removed. No stones remained. One 10 Fr by 8 cm biliary stent with a single external flap and a single internal flap was placed 8 cm into the common bile duct. Bile flowed through the stent. The stent was in good position. The endoscope was withdrawn from the patient. Indomethacin 100 mg was given via suppository to decrease the risk of post-ERCP pancreatitis (PEP). Impression: - Choledocholithiasis was found. Complete removal was accomplished by biliary sphincterotomy and balloon extraction. - One pancreatic stent was placed into the ventral pancreatic duct. - One biliary stent was placed into the common bile duct. - Indomethacin given to decrease risk of post-ERCP pancreatitis. Recommendation: - Avoid aspirin and nonsteroidal anti-inflammatory medicines for 1 week. - Clear liquid diet today. - Repeat ERCP in 6 weeks to remove stent. Caroline Hdez D.O. Caroline Hdez, 03/17/2022 1:54:23 PM This report has been signed electronically. Note Initiated On: 03/17/2022 12:44 PM Number of Addenda: 0 I attest to the content of the Intraoperative Record and orders documented therein, exceptions below {[id number]}
--- NOTE | 2022-03-17 13:56 | Post Operative Brief Note ---
Immediate Post Op Note v1 Date of Surgery March 17, 2022 Pre & Post Diagnosis Operation Date: 03/17/22 12:30 Pre-Op Diagnosis: CHOLECYSTITIS/CHOLEDOCOLITHIASIS Post-Op Diagnosis: CHOLEDOCOLITHIASIS I identified the patient and participated in the time-out.: Yes Procedure Operation Date: 03/17/22 12:30 Actual Procedures s Endoscopic Ultrasonography, Upper and esphgogastroduodenoscopy(Not Applicable) - Caroline Hdez DO s Endoscopic Retrograde Cholangiopancreatogram, sphincterotomy, balloon sweep and placement of biliary stent(Left) - Caroline Hdez DO Surgeon Caroline Hdez DO Senior [employer] None Estimated Blood Loss 0 Findings Consistent with Post-Op Diagnosis
--- NOTE | 2022-03-17 13:58 | Communication Note ---
Date of Service: March 17, 2022 The patient underwent endoscopic evaluation for suspected choledocholithiasis today. EUS did show evidence of a stone in the distal common bile duct. This was treated with biliary sphincterotomy, gallstone extraction and placement of both a biliary and prophylactic pancreatic stent. Recommendations Complete a 10-day course of antibiotic coverage Repeat ERCP in 6 to 8 weeks for stent removal Cholecystectomy as planned by Dr. Keith today.
--- NOTE | 2022-03-17 14:08 | Fluoroscopy Report ---
[place] ERCP biliary ductal CLINICAL HISTORY: W/LAP MIRTHA AND EUS COMPARISON STUDY: MRCP and right upper quadrant ultrasound March 15, 2022. FLUOROSCOPY TIME: 43 seconds. FLUOROSCOPIC IMAGES: 6. FINDINGS: Fluoroscopy was provided during ERCP. These images demonstrate cannulation of the pancreati c and common bile ducts. Balloon sweep through the common bile duct was performed. Apparent filling d efects within the distal common bile duct are noted. Common bile duct stent is noted on the final arsalan ge. IMPRESSION: Fluoroscopy provided during ERCP with placement of a common bile duct stent. ACT 112: Negative or not required by law. Electronically signed by: Rony Abbasi M.D. 03/17/2022 2:06 PM
[2022-03-17] MEDS ORDERED: OPTIRAY 300 ONE (15:12)
[2022-03-17] MEDS ORDERED: NEOSTIGMINE METHYLSULFATE 1 MG/ML 10ML VIAL ONE (15:42)
[2022-03-17] MEDS ORDERED: GLYCOPYRROLATE 0.2 MG/ML VIAL ONE (15:42)
--- NOTE | 2022-03-17 15:43 | Fluoroscopy Report ---
INTRAOPERATIVE RADIOGRAPHS CLINICAL HISTORY: Cholangiogram. Fluoroscopy time: 5 seconds. FINDINGS: A single spot fluoroscopic view of the right upper quadrant is presented. The gallbladder i s presumed surgically absent. A common bile duct stent is likely in place. There is contrast opacific ation of the common bile duct. No intraluminal filling defects are clearly seen and there is passage of contrast into the duodenum. IMPRESSION: Intraoperative cholangiogram image as above. See operative report for detailed findings. Electronically signed by: Seth Heath M.D. 03/17/2022 3:41 PM
--- NOTE | 2022-03-17 16:02 | Post Operative Brief Note ---
Immediate Post Op Note v1 Date of Surgery March 17, 2022 Pre & Post Diagnosis Operation Date: 03/17/22 12:30 Pre-Op Diagnosis: CHOLECYSTITIS/CHOLEDOCOLITHIASIS Post-Op Diagnosis: CHOLECYSTITIS/CHOLEDOCOLITHIASIS I identified the patient and participated in the time-out.: Yes Procedure Operation Date: 03/17/22 12:30 Actual Procedures p Laparoscopic Cholecystectomy with Intraoperative Cholangiogram - Lo Keith MD s Endoscopic Ultrasonography, Upper and esphgogastroduodenoscopy(Not Applicable) - Caroline Hdez DO s Endoscopic Retrograde Cholangiopancreatogram, sphincterotomy, balloon sweep and placement of biliary stent(Left) - Caroline Hdez DO Surgeon Lo Keith MD Information Systems Coordinator surgical clinical reviewer Estimated Blood Loss 20 Findings Consistent with Post-Op Diagnosis acute cholecystitis, Fluids 1000ml Specimens gallbladder Anesthesia Type General Complications none Disposition Accompanied Patient To Recovery: Yes
--- NOTE | 2022-03-17 16:32 | Anesthesiology Progress Note ---
Date of Service March 17, 2022 Anesthesia Post Procedure Vital Signs Vital Signs: Temp Pulse Pulse Resp BP BP Pulse Ox 03/17/22 16:30 37.0 C 61 16 142/79 H 94 03/17/22 16:20 61 16 136/71 98 03/17/22 16:13 37.5 C 66 16 131/75 98 03/17/22 11:50 36.6 C 53 L 20 136/69 98 03/17/22 07:16 37.1 C 54 L 18 116/68 97 03/16/22 21:39 36.5 C 53 L 16 128/81 98 Pain Intensity Left Chest: Pain Intensity: 4 Head: Pain Intensity: 2 Transfer of Care Handoff Completed per policy Notes Mental Status: alert / awake / arousable Patient Amnestic to Procedure: Yes Nausea / Vomiting: adequately controlled Pain: adequately controlled Airway Patency, RR, SpO2: stable & adequate BP & HR: stable & adequate Hydration State: stable & adequate Anesthetic Complications: no major complications apparent
[2022-03-17] MEDS: ACETAMINOPHEN 1000 MG/100 ML IV IV PRN (17:01)
[2022-03-17] MEDS ORDERED: COUGH DROP (SUGAR FREE) LOZ 24 LOZ/1 BOX BUCCAL PRN (17:05)
[2022-03-17] MEDS ORDERED: oxyCODONE/ACETAMINOPHEN 5mg/325mg TAB PO PRN (17:07)
[2022-03-17] MEDS: HYDROmorphone INJ 0.5 MG/0.5 ML SYR IV PRN ×2 (17:39→23:49)
--- NOTE | 2022-03-17 17:41 | Operative Report (OR) ---
DATE OF PROCEDURE: 03/17/2022 PREOPERATIVE DIAGNOSES: Acute cholecystitis, cholelithiasis. POSTOPERATIVE DIAGNOSES: Acute cholecystitis, cholelithiasis. OPERATIVE PROCEDURE: Laparoscopic cholecystectomy with intraoperative cholangiogram. SURGEON: Lo Keith MD. ANESTHESIA: General. ESTIMATED BLOOD LOSS: About 20 mL. FINDINGS: Significant inflammation on the gallbladder wall. COMPLICATIONS: None. INDICATIONS FOR THE PROCEDURE: This is a 36-year-old female who was admitted to the hospital for acute cholecystitis, cholelithiasis and possible common bile duct stone and I recommended to do laparoscopic cholecystectomy, possible open, possible cholangiogram. I did talk to the patient about the benefit, risk, alternate procedure. I indicated the risks may include, but not limited to, such as bleeding, infection, injury to other organs, bile leak, incisional hernia. The patient understands. She signed informed consent and I answered all questions. DETAILS OF PROCEDURE: After we identified the patient and verified the procedure, we brought the patient to the OR, put the patient in the supine position on the OR table. The patient received SCD on bilateral legs to prevent DVT. Also, the patient received 2 grams of Ancef IV for prophylactic antibiotic. The patient received general anesthesia without difficulty. The GI doctor did an endo ultrasound and ERCP first. Once they finished the procedure and removed some stones from the common bile duct, I scrubbed in and the patient's abdomen was appropriately prepped and draped in routine sterile fashion. After timeout, I injected the local anesthesia by using 1% lidocaine mixed with 0.5% Marcaine just above the umbilicus. I then made a small incision just above umbilicus, opened fascia, opened peritoneum. Under direct vision, put a Teofilo trocar in, connected to CO2 to create pneumoperitoneum, flow rate at 6 liters per minute, pressure not more than 14 mmHg. Once we got a nice pneumoperitoneum, we put a camera in, looked around the abdomen showing normal finding on the liver; however, the gallbladder showed significant inflammation on the gallbladder wall with gallbladder wall thickening, edema. Once we confirmed the diagnosis of acute cholecystitis, we put another two 5 mm trocars in the right upper quadrant and one 12 trocar in the epigastric area. Once all trocars in, we put a grasper to hold the base of gallbladder, put in the direction to the diaphragm, another grasper to hold the pouch of gallbladder, put a lateral to explore the triangle of Calot. The cystic duct was identified and mobilized. At this moment, we required to do intraoperative cholangiogram based on the patient has significant inflammation around the cystic duct and then we used Copper's technique for injecting the dye through the gallbladder and take an x-ray, which showed gallbladder and also showed a stent in the common bile duct. At this moment, we removed the Copper's instrument once we finished the intraoperative cholangiogram and we mobilized the gallbladder from the top-down technique. Once we completely mobilized the gallbladder, I used the Endo-DURGA stapler 60 for transection on the 80% of gallbladder, removed, and at this moment, we opened remainder of the gallbladder to suction some of the bile that came out. Then, we confirmed the cystic duct. the cystic duct was dilate, Then I used Endoloops to close the cystic duct. Once closed, no bile leak. Then, we removed the remainder of the gallbladder in small pieces. Once we removed the remainder of the gallbladder, rechecked, no bile leak from liver bed and no active bleeding from the liver bed. Then, we removed the gallbladder through the catch bag. Then, we reinserted the Teofilo trocar in, connected to CO2 to create pneumoperitoneum, again looked around the abdomen, no active bleeding, no bile leak from liver bed. Then, we removed all the trocars under direct vision. No active bleeding from the trocar site. Pneumoperitoneum was released. Then I closed the umbilical incision fascial layer by using 0 Vicryl [id number] x2, closed subcutaneous layer by using 2-0 Vicryl interruptedly, closed skin by using 4-0 Vicryl continuous running, closed another epigastric incision fascial layer by using 0 Vicryl [id number] x2, subcutaneous layer by using 2-0 Vicryl interruptedly, closed skin by using 4-0 Vicryl interruptedly, closed another two 5 mm trocar site of skin only by using 4-0 Vicryl. Then, we put the dressing on. The patient tolerated the procedure well. All instrument, needle and sponge counts were correct x2 at the end of the case and the patient was transferred to recovery room in stable condition. The specimen was sent to pathology. After the procedure, I did talk to the patient about the OR finding and the procedure we did, patient understands. Job ID: [id number] [facility] SYSTEM[facility]
[2022-03-17] MEDS ORDERED: MoRPHine SULFATE IR 15 MG TAB (IMMEDIATE RELEASE) PO PRN (19:54)
[2022-03-17] MEDS: MoRPHine SULFATE IR 15 MG TAB (IMMEDIATE RELEASE) PO PRN (20:59)
[2022-03-18] MEDS: MoRPHine SULFATE IR 15 MG TAB (IMMEDIATE RELEASE) PO PRN ×2 (04:07→11:31)
[2022-03-18] MEDS: HYDROmorphone INJ 0.5 MG/0.5 ML SYR IV PRN ×2 (07:34→13:57)
[2022-03-18] MEDS: FAMOTIDINE 20 MG in SYRINGE 3 ML IV SCH (07:36)
[2022-03-18] MEDS ORDERED: DOCUSATE SODIUM 100 MG CAP PO ONE (08:36)
[2022-03-18 10:04] LABS: Basophils # (auto) 0.01 K/uL (0-0.2); Basophils % (auto) 0.1 %; Eosinophils # (auto) 0.05 K/uL (0-0.5); Eosinophils % (auto) 0.4 %; Hematocrit (blood only) 35.7 % (37-47); Hemoglobin 12.2 g/dL (12.0-16.0); Immature Granulocytes # (auto) 0.04 K/uL (0.00-0.02); Immature Granulocytes % (auto) 0.3 %; Lymphocytes # (auto) 1.71 K/uL (1.2-3.4); Lymphocytes % (auto) 13.9 %; Mean Corpuscular Hgb Conc 34.2 g/dL (32-36); Mean Corpuscular Volume 84.8 fL (80-100); Mean Platelet Volume 9.3 fL (7.4-10.4); Monocytes % (auto) 8.1 %; Neutrophils # (auto) 9.49 K/uL (1.4-6.5); Neutrophils % (auto) 77.2 %; Platelet Count 308 K/uL (130-400); RDW Coefficient of Variation 12.5 % (11.5-14.5); RDW Standard Deviation 38.5 fL (36.4-46.3); Red Blood Count 4.21 M/uL (4.2-5.4)
[2022-03-18 10:12] LABS: Albumin Globulin Ratio 1.5 (0.9-2); Albumin Level 3.8 gm/dl (3.4-5.0); BUN Creatinine Ratio 20.7 (10-20); Calcium 8.7 mg/dl (8.5-10.1); Creatinine Clr Calc Pharmacy 163.3 ml/min; Est GFR (African American) 138.4 ml/min; Est GFR (Non-African American) 119.4 ml/min; Globulin 2.5 gm/dl (2.5-4.0); Potassium 3.9 mmol/L (3.5-5.1); Total Protein 6.3 gm/dl (6.0-8.3)
--- NOTE | 2022-03-18 11:22 | Gastroenterology Progress Note ---
Date of Service March 18, 2022 Assessment & Plan (1) Elevated AST (SGOT): (2) Elevated ALT measurement: (3) Bile duct, common, cystic dilatation: Plan: Because stent was placed, will need to undergo ERCP for stent removal in 6 weeks. Our office has called her and arrange this appointment. Continue regular diet. No GI contraindication to discharge today, would defer that decision to surgery. Admission and Anticipated Discharge Date Admission Date: March 15, 2022 Supervising Physician Co-Signing Physician Notes Late entry: Patient was seen and examined on 03/18 with JACOB Ziegler whose note reflects our findings and plan. Subjective 36yr old female Underwent EUS and ERCP yesterday for sphincterotomy and sweeping of the bile duct for choledocholithiasis. Also underwent laparoscopic cholecystectomy. This morning she is feeling well though with diffusely sore abdomen, she has tolerated small amounts of regular food for breakfast without nausea or vomiting or increased pain. Review of Systems Review of Systems: ROS: Gen: + Has been emotional, tearful in the last few days but feeling calm this morning. Denies weakness, fevers, weight loss Eyes: No eye redness, or pain, no recent vision changes Resp: No SOB, no cough Cardio: No palpitations/irregular beats, no chest pain GI: No abdominal pain, no nausea/vomiting : Denies pain on urination Skin: No jaundice, itching or new rashes Physical Exam Constitutional: well developed and cooperative Eyes: PERRL, conjunctivae normal, anicteric sclerae Respiratory: normal respiratory effort, lungs clear to auscultation Cardiovascular: RRR, no murmur, no edema Gastrointestinal (Abdomen): Inspection/Auscultation: abdomen normal to inspection and normal bowel sounds; abdomen not distended Incisions are covered with clean dry dressings. Abdomen is nondistended mildly diffusely tender. Skin: no rashes, warm and dry normal turgor and + pallor Neurologic: PERRL, EOMI, accommodation nl, no face palsy, no dysarthria awake; not confused Psychiatric: A+Ox3, euthymic affect Orientation: alert, oriented x 3 and cooperative Lymphatic: no cervical or axillary lymphadenopathy Results & Data ([facility]) Vital Signs (Past 12 Hours) Vital Signs Temp Pulse Resp BP Pulse Ox 03/18/22 08:30 37 C 73 16 116/75 97 03/18/22 03:15 36.4 C L 50 L 16 126/70 95 Diagnostic Findings EUS 03/18/22 - There was no sign of significant pathology in the ampulla. - There was dilation in the common bile duct which measured up to 10 mm. - Multiple stones were visualized endosonographically in the common bile duct. - Multiple stones were visualized endosonographically in the gallbladder. - There was no sign of significant pathology in the entire pancreas. - There was no evidence of significant pathology in the visualized portion of the liver. - No specimens collected. ERCP 03/18/22: - Choledocholithiasis was found. Complete removal was accomplished by biliary sphincterotomy and balloon extraction. - One pancreatic stent was placed into the ventral pancreatic duct. - One biliary stent was placed into the common bile duct. - Indomethacin given to decrease risk of post-ERCP pancreatitis.
--- NOTE | 2022-03-18 11:43 | Discharge Summary ---
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 She woke up this morning with pain, and has associated nausea and multiple episodes of nonbloody emesis. She has never experienced this pain before. She denies fever/chills, yellowing the skin, confusion, weakness. Has a family history of gallbladder disease in her mother, who required surgery, no personal history of such other abdominal surgeries. In ED, she is hypertensive 157/101, HR 57. Labs largely unremarkable, significant for AST 54 ALT 98. GB U/S showed evidence of a nonmobile calculus within the gallbladder, as well as gallbladder thickening and positive Brunson sign. Also since dilation of common bile duct. CXR unremarkable. Did achieve improvement in ED following IV fluid hydration, APAP, Pepcid, Zofran, diphenhydramine, Reglan. Principal Diagnosis Choledocolithasis Discharge Exam Constitutional WD/WN, vitals as above Eyes EOM intact bilaterally; no conjunctival abnormality ENMT external ear and nose normal, oropharynx normal Neck trachea midline, no thyromegaly normal visual inspection Respiratory normal respiratory effort, lungs clear to auscultation no respiratory distress Cardiovascular RRR, no murmur, no edema Gastrointestinal (Abdomen) Inspection/Auscultation: abdomen normal to inspection; abdomen not distended Musculoskeletal no cyanosis or clubbing, extremities motor strength 5/5 Skin no rashes, warm and dry Neurologic moves all extremities and awake Psychiatric Orientation: alert, oriented to person and cooperative Discharge Data Allergies Allergy/AdvReac Type Severity Reaction Status Date / Time bee venom protein (honey bee) Allergy Severe SEVERE Verified 02/15/22 04:53 SWELLING strawberry Allergy Severe Anaphylaxis Verified 02/15/22 04:53 pollen extracts Allergy Intermediate CONGESTION Verified 02/15/22 04:53 Sulfa (Sulfonamide Allergy Intermediate INTESTINAL Verified 02/15/22 04:53 Antibiotics) PAIN, HIVES PET DANDER Allergy Intermediate EYES PUFFY Uncoded 10/10/21 10:21 IF CONTACT TO FACE, RESP. DIFFICULTY Consultations 03/15/22 13:09 ED Decision to Admit Stat 03/15/22 15:22 Consult General Surgery Routine 03/16/22 08:06 Consult Gastroenterology Routine Procedures Performed Operation Date: 03/17/22 12:30 Actual Procedures p Laparoscopic Cholecystectomy with Intraoperative Cholangiogram - MD sharmin Tubbs Endoscopic Ultrasonography, Upper and esphgogastroduodenoscopy(Not Applicable) - Caroline Hdez DO s Endoscopic Retrograde Cholangiopancreatogram, sphincterotomy, balloon sweep and placement of biliary stent(Left) - Caroline Hdez DO Ordered Studies 03/15/22 10:55 US gallbladder Stat 03/15/22 13:49 MR MRCP Urgent 03/17/22 12:30 FL ERCP biliary ductal Routine 03/17/22 12:31 US upper EUS PACS images Routine 03/17/22 14:57 FL cholangiogram OR Routine Hospital Course (1) Acute cholecystitis due to biliary calculus: RUQ U/S with evidence for nonmobile calculus within the neck of the gallbladder with gallbladder wall thickening and positive sonographic Brunson sign. Findings are suspicious for early acute cholecystitis. This also mild dilatation of the common bile duct. MRCP confirmed stone, but did not show gallbladder wall thickening. No stones in CBD. - General surgery consulted - Lap david on 03/17 with no complications noted. - GI consulted - ERCP on 03/17 with two biliary stents. Will need stents removed in 6 weeks. GI has already scheduled appointment per their note. (2) Choledocholithiasis: Seen during surgery despite negative imaging. - As above (3) Crohn's ileitis: Sees an IBD specialist in [place]. Controlled with diet for now. - No inpatient needs at present. (4) Asthma: Has not required her inhaler for a long time. - Albuterol inhaler as needed. (5) Migraine headache: Takes Imitrex as needed, however has not required this in a long time. - Monitor Total Time Total Time Spent Total Time Spent (In Minutes): 35 Discharge Plan Discharge Items Patient Disposition: Home - Self-Care Reason For Visit: CHOLESYTISITS/CHOLEDOCOLITHIASIS Discharge Diagnosis: Gallstones in gallbladder and common bile duct Activity: Per Instructions section Non-emergency contact: Primary Care Provider and Surgeon Call non-emergency contact if: your pain is not controlled Follow-up/Referrals: Cara Abbasi MD [Primary Care Provider] - Lo Keith MD [Physician] - (Please follow-up with Dr. Keith in the office in 1-2 weeks.) Caroline Hdez DO [Physician] - (Please see Dr. Hdez in the office for your stent removal in 6 weeks.) Diet: Low Fat Addtl Attending Provider Instructions: Be sure to use a stool softener while on pain medication. Please see Dr. Hdez in the office for your biliary stent removal in 6 weeks. Addtl [place] Presser Provider Instructions: Post-Surgical ~Joselyn espinoza Instructions Activity Recommendations: - lifting limitation: (20 pounds for 4 weeks), - exercise/sex/sports limit: (non-strenuous for 2 weeks), - driving or machine use limit: (none for 1 week or until pain free and no longer taking narcotic pain medication), - Shower/bathe limit: (may shower beginning Wednesday, no submerging underwater for 2 weeks) Diet: - Resume previous diet SPECIAL CARE INSTRUCTIONS: - May shower on Wednesday, sponge bath and wash hair in meantime. On Wednesday, can remove outer dressings and shower. Let water run over area and pat dry. - Leave steri strips on for one week and then remove. They may fall off on their own that is okay. - Call the surgeon's office with any questions or concerns - - (ex. temperature higher than 101 degrees F, excessive bleeding or pain). MEDICATIONS: - Resume previous medications unless instructed otherwise by your surgeon. - Avoid NSAIDs ( ibuprofen, Motrin, Aleve) and aspirin for 1 week - [place] 1 every 6 hours, as needed for pain FOLLOW UP VISIT: - If not already scheduled, please call the office to schedule a two week follow-up appointment. Office number Pending Studies at Discharge: No Stand-Alone Forms: My [employer], Smoking Cessation Medications and DC Order Prescriptions: New hydrocodone-acetaminophen 5-325 mg tablet 1 tab PO Q6H PRN (Reason: pain) Qty: 14 RF: 0 Continued (DME) BinaxNOW imedo Card Home Tst Kit See Rx Instructions .Route Qty: 5 RF: 5 cholecalciferol (vitamin D3) 1 tab PO DAILY RF: 0 zinc 50 mg tablet 50 mg PO DAILY RF: 0 multivitamin Tablet 1 tab PO DAILY RF: 0 Discharge Orders: Discharge Order (Routine); Ordered 03/18/22 Ordered By: Alex Child Admission Data Admit Date/Time: 03/15/22 13:46 Attending Provider: Alex Child Admit Provider: Santo Rachel Primary Care Provider: Cara Abbasi Other Providers: Alex Child ; Santo Rachel ; Enmanuel Carmona ; Kourtney Su Coding Level of Care Code D/C DAY MANAGEMENT >30 MINS Diagnoses Acute cholecystitis due to biliary calculus K80.00 Choledocholithiasis K80.50 Crohn's ileitis K50.00 Asthma J45.909 Migraine headache G43.909
--- NOTE | 2022-03-18 15:10 | Surgery Progress Note ---
Date of Service March 18, 2022 Assessment & Plan (1) Cholelithiases: (2) Acute cholecystitis due to biliary calculus: (3) Bile duct, common, cystic dilatation: Plan: POD # 1 s/p EUS with ERCP, biliary sphincterotomy and remove of CBD stone with placement of CBD stent and pancreatic stent and laparoscopic cholecystectomy - afebrile, vss - postop pain controlled, preop pain resolved - no n,v tolerating diet - slight elevation in wbc and lfts but likely due to postop state, t.bili and alk and lipase wnl Plan: Okay from surgical standpoint for discharge discharge instructions reviewed f/u surgery office in 2 weeks PO Tramadol for severe pain, pump and dump if needs to take since she is . Otherwise can take extra strength Tylenol as needed for mild to moderate pain. AVOID NSAID given sphincterotomy. Dr. Keith was present during my examination and agrees with above. Admission and Anticipated Discharge Date Admission Date: March 15, 2022 Subjective feeling much better preop pain resolved postop pain controlled tolerating diet no n,v ready to go home Physical Exam Constitutional: WD/WN, vitals as above no acute distress and not ill appearing Neck: normal visual inspection and trachea midline Respiratory: normal respiratory effort; no respiratory distress Gastrointestinal (Abdomen): Inspection/Auscultation: abdomen normal to inspection and + abdominal surgical incision (covered with dressings); abdomen not distended Percussion/Palpation: + abdomen tender (RUQ at incision sites) and abdomen soft; no guarding and abdomen not rigid Skin: no rashes, warm and dry Psychiatric: A+Ox3, euthymic affect Results & Data ([facility]) Vital Signs (Past 12 Hours) Vital Signs Temp Pulse Pulse Resp BP BP Pulse Ox 03/18/22 11:56 37 C 61 73 16 135/81 116/75 97 03/18/22 08:30 37 C 73 16 116/75 97 03/18/22 03:15 36.4 C L 50 L 16 126/70 95 Laboratory Results 03/18/22 03/18/22 Range/Units 09:23 09:23 WBC 12.30 H (4.8-10.8) K/uL RBC 4.21 (4.2-5.4) M/uL Hgb 12.2 (12.0-16.0) g/dL Hct 35.7 L (37-47) % MCV 84.8 (80-100) fL MCH 29.0 (25-34) pg MCHC 34.2 (32-36) g/dL RDW Std Deviation 38.5 (36.4-46.3) fL RDW Coeff of Domonique 12.5 (11.5-14.5) % Plt Count 308 (130-400) K/uL MPV 9.3 (7.4-10.4) fL Immature Gran % (Auto) 0.3 % Neut % (Auto) 77.2 % Lymph % (Auto) 13.9 % [place] % (Auto) 8.1 % Eos % (Auto) 0.4 % Baso % (Auto) 0.1 % Neut # (Auto) 9.49 H (1.4-6.5) K/uL Lymph # (Auto) 1.71 (1.2-3.4) K/uL [place] # (Auto) 1.00 H (0.11-0.59) K/uL Eos # (Auto) 0.05 (0-0.5) K/uL Baso # (Auto) 0.01 (0-0.2) K/uL Immature Gran # (Auto) 0.04 H (0.00-0.02) K/uL Sodium 138 (136-145) mmol/L Potassium 3.9 (3.5-5.1) mmol/L Chloride 105 (98-107) mmol/L Carbon Dioxide 26 (21-32) mmol/L Anion Gap 7 (3-11) BUN 12 (6-23) mg/dl Creatinine 0.58 L (0.6-1.2) mg/dl Est Cr Clr Drug Dosing 163.3 ml/min Est GFR ( Amer) 138.4 ml/min Est GFR (Non-Af Amer) 119.4 ml/min BUN/Creatinine Ratio 20.7 H (10-20) Glucose 87 (70-99(Fasting)) mg/dl Calcium 8.7 (8.5-10.1) mg/dl Total Bilirubin 1.0 (0.2-1.0) mg/dl AST 62 H (13-39) U/L ALT 118 H (7-52) U/L Alkaline Phosphatase 58 (34-104) U/L Total Protein 6.3 (6.0-8.3) gm/dl Albumin 3.8 (3.4-5.0) gm/dl Globulin 2.5 (2.5-4.0) gm/dl Albumin/Globulin Ratio 1.5 (0.9-2) Lipase 119 H (11-82) U/L (1) Cholelithiases Biliary obstruction: with biliary obstruction Cholecystitis presence: without cholecystitis Cholelithiasis location: gallbladder and bile duct Qualified Code(s): K80.71 - Calculus of gallbladder and bile duct without cholecystitis with obstruction
== END 2022-03-18 15:07 | disposition home or self-care (01) ==
LOC: 3E 09:21 → ED 09:21 → SUATTDRO 13:46 → 3E 14:49